=== PATIENT | female | born 1980 | race Caucasian/White ===

== ENCOUNTER 2020-12-08 22:57 | Emergency (ER) | payer OTHER, SELFPAY ==
--- NOTE | ~2020-12-08 | CT_ITS ---
EXAMINATION: CT abdomen pelvis w con EXAM DATE: 12/09/2020 00:19 INDICATION: Abdominal pain. TECHNIQUE: Spiral CT of the abdomen and pelvis was performed following intravenous injection of 100 m L Omnipaque 350. Axial, coronal and sagittal images of the abdomen and pelvis were reviewed. The do se-length product (DLP) for this examination was 1515.16 mGy-cm. The exposure was tailored according to patient size (auto mA exposure control), and iterative reconstruction (ASIR) was used as addition al dose reduction technique. There is no prior study for comparison. FINDINGS: The liver, spleen, adrenal glands and pancreas are unremarkable. There are cholecystectomy clips. Portal and splenic veins are patent. Kidneys enhance symmetrically. There is no hydronephr osis. There is IUD which appears to be centrally located within the endometrium, expected position. The bladder is collapsed at time of imaging limiting evaluation. There is no retroperitoneal or pe lvic lymphadenopathy. The appendix is normal. There is mild sigmoid colonic diverticulosis. There is no adjacent inflammat ory change to suggest diverticulitis. The stomach and small bowel are unremarkable. There is expecte d amount of colonic stool. No free intraperitoneal gas. The heart is normal in size. There are n o pericardial or pleural effusions. The lung bases are unremarkable. The bones are unremarkable. IMPRESSION: No acute intra-abdominal findings. Mild sigmoid diverticulosis. Reviewed, dictated and finalized at location A.
[2020-12-08 23:03] VITALS: BP 150/90; PULSE 98; RESP 18; TEMP 36.7; O2SAT 100
--- NOTE | 2020-12-08 23:09 | ED.GENADULT ---
HPI - General Adult General Chief complaint: Nausea/Vomiting/Diarrhea Stated complaint: abd pain, nausea Time Seen by Provider: 12/08/20 23:09 Source: patient History of Present Illness HPI narrative: Patient is a 40 y/o female complaining of abdominal pain starting 2 days ago. Her pain is mostly located in epigastric area. She describes her pain as aching and burning. She rates her pain as 6-7/10. She took Ibuprofen, Tums and Pepto Bismol, none of which helped. She has some nausea, but no vomiting or diarrhea. Related Data Home Medications Medication Instructions Recorded Confirmed No Home Medications 12/08/20 12/08/20 Allergies Allergy/AdvReac Type Severity Reaction Status Date / Time zolmitriptan Allergy Unknown ANAPHYLAXIS Verified 12/08/20 23:06 NALDECON Allergy Unknown HIVES Uncoded 05/05/19 14:28 Review of Systems Constitutional: Constitutional: Denies chills, Denies fever(s), Denies headache(s) and Denies weakness Eyes: Eyes: Denies blurry vision ENT: Denies headache(s) and Denies neck pain Cardiovascular: Cardiovascular: Denies chest pain and Denies dyspnea Respiratory: Respiratory: Denies cough and Denies dyspnea Gastrointestinal: Gastrointestinal: Reports abdominal pain, Denies diarrhea, Reports nausea and Denies vomiting Genitourinary: Genitourinary: Denies hematuria and Denies dysuria Musculoskeletal: Musculoskeletal: Denies back pain and Denies neck pain Neurologic: Denies headache(s) and Denies weakness PMFSH Social History Social History Alcohol intake: never Exam Const: General: no acute distress and well developed Orientation/consciousness: oriented to person, oriented to place, oriented to time and patient oriented x3 HENMT: Head: normocephalic Ears: external ears normal General nose exam: Normal external nose present Eyes: General: appearance normal, both eyes and all related structures Conjunctivae: conjunctivae normal Neck: Neck: normal visual inspection and full ROM Chest: Chest palpation & inspection: normal inspection of the chest and no tenderness Resp: Effort & Inspection: normal respiratory effort Auscultation: clear to auscultation bilaterally Cardio: Rate: regular rate Rhythm: regular rhythm GI: GI Palp: No abdominal tenderness and Yes Soft to palpation Skin: General skin exam: normal color and turgor normal Neuro: General: oriented to person, oriented to place, oriented to time and patient oriented x3 Cognition (Neuro): normal cognition Extrem: General: normal to inspection, full ROM and no pedal edema Psych: Appearance: grossly normal Mental Status: mental status grossly normal Affect: normal affect Course Vital Signs Vital signs: Vital Signs Temperature 36.7 C 12/08/20 23:03 Pulse Rate 98 12/08/20 23:03 Respiratory Rate 18 12/08/20 23:03 Blood Pressure 150/90 H 12/08/20 23:03 Pulse Oximetry 100 12/08/20 23:03 Temperature 36.7 C 12/08/20 23:03 Pulse Rate 88 12/08/20 23:55 Respiratory Rate 20 12/08/20 23:55 Blood Pressure 125/88 12/08/20 23:55 Pulse Oximetry 98 12/08/20 23:55 Medical Decision Making Vital Signs Vital Signs: Vital Signs Temperature 36.7 C 12/08/20 23:03 Pulse Rate 98 12/08/20 23:03 Respiratory Rate 18 12/08/20 23:03 Blood Pressure 150/90 H 12/08/20 23:03 Pulse Oximetry 100 12/08/20 23:03 Temperature 36.7 C 12/08/20 23:03 Pulse Rate 88 12/08/20 23:55 Respiratory Rate 20 12/08/20 23:55 Blood Pressure 125/88 12/08/20 23:55 Pulse Oximetry 98 12/08/20 23:55 Lab Data Result diagrams: 12/08/20 23:29 12/08/20 23:29 Labs: Lab Results 12/08/20 12/08/20 12/08/20 Range/Units 23:29 23:29 23:57 WBC 8.7 (4.5-10.0) K/mm3 RBC 4.94 (4.2-5.4) M/mm3 Hgb 15.3 H (12.0-15.0) g/dL Hct 45.1 (37.0-47.0) % MCV 91.3 (80-100) fl MCH 31.0 (26-34) pg
[2020-12-08 23:39] LABS: Basophils Absolute Auto 0.1 K/mm3 (0.0-0.1); Basophils Percent Auto 0.8 % (0.2-1.2); Eosinophils Absolute Auto 0.3 K/mm3 (0-0.3); Eosinophils Percent Auto 3.8 % (0-4.4); Hematocrit 45.1 % (37.0-47.0); Hemoglobin 15.3 g/dL (12.0-15.0); Immature Granulocyte Absolute 0.05 K/mm3 (0.00-0.031); Immature Granulocyte Percent A 0.6 % (0-0.5); Lymphocytes Absolute Auto 2.29 K/mm3 (0.9-3.2); Lymphocytes Percent Auto 26.5 % (18.3-44.2); Mean Corpuscular HGB Conc 33.9 g/dl (32-36); Mean Corpuscular Volume 91.3 fl (80-100); Mean Platelet Volume 10.1 fl (7.4-10.4); Monocytes Absolute Auto 0.8 K/mm3 (0.1-0.6); Monocytes Percent Auto 8.8 % (2.6-8.5); Neutrophils Absolute Auto 5.2 K/mm3 (1.3-6.7); Neutrophils Percent Auto 59.5 % (45.5-73.1); Platelet Count Result 276 k/mm3 (150-375); Red Blood Count 4.94 M/mm3 (4.2-5.4); Red Cell Distribution Width 12.2 % (11.5-14.5); White Blood Count 8.7 K/mm3 (4.5-10.0)
[2020-12-08 23:49] LABS: Alanine Aminotransferase 15 U/L (4-35); Albumin Level 4.7 g/dL (3.5-5.1); Alkaline Phosphatase 102 U/L (38-126); Anion Gap 11 mmol/L (8-16); Aspartate Amino Transferase 24 U/L (14-36); Bilirubin,Total 0.6 mg/dL (0.2-1.3); Blood Urea Nitrogen 14 mg/dL (7-17); Calcium 9.7 mg/dL (8.4-10.2); Carbon Dioxide 29 mmol/L (22-30); Chloride 103 mmol/L (98-107); Estimated CRCL calculation 113 ml/min; Estimated Glomerular Filt Rate > 60; Glucose 102 mg/dL (65-105); Lipase 57 U/L (23-300); Potassium 3.4 mmol/L (3.4-5.0); Sodium 143 mmol/L (137-145)
[2020-12-08] MEDS: BELLADONNA ALK/PHENOB ELIX 10 ML, MAG HYDROX/ALUMINUM HYD/SIMETH 30 ML, LIDOCAINE HCL 2... PO (23:52)
[2020-12-08 23:55] VITALS: BP 125/88; PULSE 88; RESP 20; O2SAT 98
[2020-12-09 00:17] LABS: Add Urine Microscopic? YES; Appearance Urine Clear (Clear); Bacteria Urine Trace /hpf; Bilirubin Urine Negative (Negative); Blood Urine Negative (Negative); Color Urine Yellow (Yellow); Glucose Urine UA Negative (Negative); Ketones Urine Negative (Negative); Leukocyte Esterase Ur Negative LEU/UL (Negative); Mucus Urine Rare /lpf; Nitrate Urine Negative (Negative); Protein Urine 1+ mg/dL (Negative); RBC Urine 0-2 /hpf (0-2); Specific Grav Ur 1.017 (1.001-1.035); Squamous Epithelial Cell Urine Many /hpf (Few); Urobilinogen Urine Negative mg/dL (<2.0); WBC Urine 0-3 /hpf
[2020-12-09 01:59] VITALS: BP 127/83; PULSE 79; RESP 18; O2SAT 98
== END 2020-12-09 02:01 | disposition home or self-care (01) ==
PROVIDERS: Emergency Provider Emergency Medicine
DX: R10.13 Epigastric pain (principal)
CPT/HCPCS: 36415; 74177; 80053; 81001; 83690; 85025; 99284; A9270; Q9967

== ENCOUNTER 2021-06-20 13:34 | Emergency (ER) | payer OTHER, SELFPAY ==
[2021-06-20 13:52] VITALS: BP 137/94; PULSE 88; RESP 18; TEMP 37.3; O2SAT 99
--- NOTE | 2021-06-20 14:20 | ED.URI ---
HPI - URI/Sore Throat General Chief Complaint: Upper Respiratory Infection Stated Complaint: Congestion,Cough Time Seen by Provider: 06/20/21 14:25 Source: patient, RN notes reviewed and old records reviewed Mode of arrival: ambulatory Limitations: no limitations History of Present Illness HPI Narrative: 41 year old female who presents to [facility] care with complaints of cough, sinus congestions and drainage for the past 5 days. Patient states that she has noted yellow nasal drainage and also some expectoration of yellow sputum with her cough. She reports that she has been taking some cold and flu tablets for her symptoms without resolution or improvement, does have history of some sinus issues and seasonal allergies. Patient deniesa ny known fevers chills or sweats, denies any dyspnea or any chest pain. Patient has had COVID and flu vaccinations. MD elicited complaint: cough, rhinorrhea and nasal congestion Related Data Allergies Allergy/AdvReac Type Severity Reaction Status Date / Time zolmitriptan Allergy Severe ANAPHYLAXIS Verified 06/20/21 13:56 NALDECON Allergy Mild HIVES Uncoded 06/20/21 13:56 Review of Systems Review of Systems: CONSTITUTIONAL: Denies fever, chills, or sweats. EYES: Denies visual changes, redness, or discharge. ENT: Positive for rhinorrhea, congestion, no sore throat, or otalgia. CARDIOVASCULAR: Denies chest pain, palpitations, or edema. RESPIRATORY: Positive for productive cough denies dyspnea. GASTROINTESTINAL: Denies abdominal pain, nausea, vomiting, or diarrhea. GENITOURINARY: Denies dysuria or hematuria. SKIN: Denies rash or itching. MUSCULOSKELETAL: chronic back pain, joint pain,no body aches NEUROLOGIC: Denies headache, numbness, or weakness. PSYCHIATRIC: Positive for history of anxiety or depression. All systems reviewed & are unremarkable except as noted in HPI and below PMFSH Past Medical History Medical History (Updated 06/23/21 @ 08:32 by Joselin Clemens NP) Anxiety and depression Bulging lumbar disc Elevated serum cholesterol Hx of migraine headaches Hypertension Seasonal allergies UTI (urinary tract infection) Surgical History Surgical History (Updated 06/23/21 @ 08:32 by Joselin Clemens NP) History of dilatation and curettage Hx of cholecystectomy Hx of tonsillectomy Family History Family History (Updated 06/23/21 @ 08:35 by Joselin Clemens NP) Mother Hypertension Diabetes mellitus Grandparent Emphysema lung Cancer Social History Social History (Updated 06/23/21 @ 08:35 by Joselin Clemens NP) Smoking status: Never smoker Alcohol intake: current Alcohol use details: rare social Substance use: never Living arrangements: with family Gender identity (if verbalized by the patient): Female Exam Narrative: GENERAL: Well-appearing, well-nourished, and in no acute distress. HEAD: Normocephalic, atraumatic. EYES: PERRLA and EOMI. ENT: Nares red with swollen turbinates, yellow tinged rhinorrhea no epistaxis. Mucous membranes moist.TM's normal with dull light reflex, throat red with no lesions or exudates, tonsils absent, post nasal drainage noted. NECK: Supple.no lymphadenopathy CHEST: Clear to auscultation. No respiratory distress.productive cough, denies any dyspnea, SAO2 99% on room air HEART: Regular rate and rhythm. No murmur heard. Normal peripheral pulses. ABDOMEN: Soft, nontender, nondistended, normal active bowel sounds. EXTREMITIES: Normal range of motion. No edema. SKIN: Warm, dry, no rash. NEURO: No focal deficits. Alert and oriented x3. Course Vital Signs Vital signs: Vital Signs Temperature 37.3 C 06/20/21 13:52 Pulse Rate 88 06/20/21 13:52 Respiratory Rate 18 06/20/21 13:52 Blood Pressure 137/94 H 06/20/21 13:52 Pulse Oximetry 99 06/20/21 13:52 Temperature 37.3 C 06/20/21 13:52 Pulse Rate 88 06/20/21 13:52 Respiratory Rate 18 06/20/21 13:52 Blood Pressure 137/94 H 06/20/21 13:52 Pulse Oximet
== END 2021-06-20 14:49 | disposition home or self-care (01) ==
PROVIDERS: Emergency Provider Registered Nurse; PCP Registered Nurse
DX: J32.9 Chronic sinusitis, unspecified (principal); I10 Essential (primary) hypertension
CPT/HCPCS: 99213; G0463

== ENCOUNTER 2022-02-04 12:36 | Emergency (ER) | payer OTHER, SELFPAY ==
[2022-02-04 12:52] VITALS: BP 129/77; PULSE 66; RESP 18; TEMP 36.9; O2SAT 98
--- NOTE | 2022-02-04 13:11 | WPDEDEXPGENP ---
HPI - General Ped General Chief complaint: Urogenital-Female Stated complaint: uti complaint History of Present Illness HPI narrative: Patient is a 42-year-old female who presents to the [facility] care via POV for evaluation of urinary symptoms that began yesterday. Additionally, she reports urinary frequency and dysuria. Denies taking meds for symptoms. Additionally, she reports antibiotic use causes yeast infections and is requesting Diflucan. History of UTIs. Today symptoms are similar to previous UTI. Last UTI was 1 month ago. Of note, patient reports treatment failure with Bactrim DS and Macrobid. Related Data Home Medications Medication Instructions Recorded Confirmed hydrochlorothiazide 12.5 mg capsule 12.5 mg DAILY 02/04/22 02/04/22 levonorgestrel 20 mcg/24 hours (7 1 device intrauterine ONCE 02/04/22 02/04/22 yrs) 52 mg intrauterine device (Mirena) Allergies Allergy/AdvReac Type Severity Reaction Status Date / Time zolmitriptan Allergy Severe ANAPHYLAXIS Verified 02/04/22 12:59 NALDECON Allergy Mild HIVES Uncoded 02/04/22 12:59 Pediatric Review of Systems Review of Systems: Denies history of urinary tract infections, pyelonephritis, and renal calculi. Pertinent negatives: fever, chills, sweats, change in appetite, poor p.o. intake, malaise, recent weight loss, myalgias, lymphadenopathy, headache, dizziness, STD exposure, painful intercourse, abdominal pain, constipation, nausea, vomiting, diarrhea, abdominal cramping, hematuria, urinary urgency, back pain, urinary incontinence, vaginal bleeding/discharge, penile drainage, testicular pain, shortness of breath, chest pain, and heart palpitations/murmurs. [facility] Past Medical History Medical History Anxiety and depression Bulging lumbar disc Elevated serum cholesterol Hx of migraine headaches Hypertension Seasonal allergies UTI (urinary tract infection) Surgical History Surgical History History of dilatation and curettage Hx of cholecystectomy Hx of tonsillectomy Family History Family History Mother Hypertension Diabetes mellitus Grandparent Emphysema lung Cancer Social History Social History Smoking status: Never smoker Alcohol intake: current Alcohol use details: rare social Substance use: never Gender identity (if verbalized by the patient): Female Comments I have reviewed and agree with the patient's past medical, surgical, social, and family hx as documented by the RN. There is no relevant family history pertinent to the presenting complaint. Pediatric Exam Narrative: Physical exam: GENERAL: Well-appearing, well-nourished, and in no acute distress. HEAD: Normocephalic, atraumatic. NECK: Supple. No lymphadenopathy or nuchal rigidity. CHEST: Lung sounds are clear to auscultation in bilateral lung mai. No respiratory distress. HEART: Regular rate and rhythm. No murmur, gallop, or rub heard. ABDOMEN: Soft, non-tender, non-distended, normal active bowel sounds in all quadrants. No guarding. No rebound tenderness. No pulsatile or palpable abdominal mass(es). No CVATGU: Bladder non-distended, non-tender EXTREMITIES: Normal range of motion. No edema. SKIN: Warm, dry, no rash. No skin color changes. Excellent turgor. NEURO: No focal deficits. Alert and oriented x3. SPECIAL OBSERVATIONS: Smiling. Laughing. No evidence of discomfort. Course Course Level of Care: Express Care Visit Vital Signs Vital signs: Vital Signs Temperature 98.4 F 02/04/22 12:52 Pulse Rate 66 02/04/22 12:52 Respiratory Rate 18 02/04/22 12:52 Blood Pressure 129/77 02/04/22 12:52 Pulse Oximetry 98 02/04/22 12:52 Oxygen Delivery Room Air 02/04/22 12:52 Temperature 98.4 F
== END 2022-02-04 13:28 | disposition home or self-care (01) ==
PROVIDERS: Emergency Provider Nurse Practitioner Family
DX: N30.90 Cystitis, unspecified without hematuria (principal); I10 Essential (primary) hypertension
CPT/HCPCS: 81003; 87077; 87086; 87186; 99213; G0463

== ENCOUNTER 2022-04-11 10:25 | Emergency (ER) | payer OTHER, SELFPAY ==
[2022-04-11 10:47] VITALS: BP 128/68; PULSE 70; RESP 18; TEMP 36.6; O2SAT 100
--- NOTE | 2022-04-11 10:54 | ED.FEMALEGU ---
HPI - Female Genitourinary General Chief complaint: Urogenital-Female Stated complaint: uti complaint Time Seen by Provider: 04/11/22 10:54 Source: patient and RN notes reviewed Mode of arrival: ambulatory Limitations: no limitations History of Present Illness HPI Narrative: 42-year-old female presented for complaint of urinary frequency, burning, and mild hematuria over the past few days. She endorses more frequent UTIs over the past year. She denies nausea, vomiting, abdominal pain, flank pain, fevers or chills. She is not taking anything [id number] for symptoms Related Data Home Medications Medication Instructions Recorded Confirmed levonorgestrel 20 mcg/24 hours (8 1 device intrauterine ONCE 02/04/22 04/11/22 yrs) 52 mg intrauterine device (Mirena) Allergies Allergy/AdvReac Type Severity Reaction Status Date / Time zolmitriptan Allergy Severe ANAPHYLAXIS Verified 04/11/22 11:03 NALDECON Allergy Mild HIVES Uncoded 04/11/22 11:03 Review of Systems Review of Systems: CONSTITUTIONAL: Denies body aches, fever, chills, or sweats. CARDIOVASCULAR: Denies chest pain, palpitations, or edema. RESPIRATORY: Denies cough or dyspnea. GASTROINTESTINAL: Denies abdominal pain, nausea, vomiting, or diarrhea. GENITOURINARY: Per HPI SKIN: Denies rash, itching, or wounds. MUSCULOSKELETAL: Denies back pain or myalgia. [facility] Past Medical History Medical History Anxiety and depression Bulging lumbar disc Elevated serum cholesterol Hx of migraine headaches Hypertension Seasonal allergies UTI (urinary tract infection) Surgical History Surgical History History of dilatation and curettage Hx of cholecystectomy Hx of tonsillectomy Family History Family History Mother Hypertension Diabetes mellitus Grandparent Emphysema lung Cancer Social History Social History Smoking status: Never smoker Alcohol intake: current Alcohol use details: rare social Substance use: never Gender identity (if verbalized by the patient): Female Comments At time of signature, I have reviewed and agree with nursing past medical, surgical, social and family history unless otherwise noted. Please see nursing chart for further information. There is no relevant family history pertinent to the presenting complaint Exam Narrative: GENERAL: Well-appearing ENT: Mucous membranes pink and moist. CHEST: Clear to auscultation. HEART: Regular rate and rhythm. ABDOMEN: Soft, nontender, nondistended, normal active bowel sounds. No CVA tenderness SKIN: Warm, dry, no rash. NEURO: Alert and oriented x3. Course Course Emergency Course: Patient is aware of diagnosis, understands and agrees to treatment plan. Anticipatory guidance given. Patient agrees to follow-up as directed and is aware of reasons to seek care at the emergency department. Portions of this record may have been created with voice recognition software Level of Care: Express Care Visit Vital Signs Vital signs: Vital Signs Temperature 97.8 F 04/11/22 10:47 Pulse Rate 70 04/11/22 10:47 Respiratory Rate 18 04/11/22 10:47 Blood Pressure 128/68 04/11/22 10:47 Pulse Oximetry 100 04/11/22 10:47 Oxygen Delivery Room Air 04/11/22 10:47 Temperature 97.8 F 04/11/22 10:47 Pulse Rate 70 04/11/22 10:47 Respiratory Rate 18 04/11/22 10:47 Blood Pressure 128/68 04/11/22 10:47 Pulse Oximetry 100 04/11/22 10:47 Oxygen Delivery Room Air 04/11/22 10:47 Reviewed MDM - Female Genitourinary MDM Narrative Medical decision making narrative: Result of urine reviewed with patient. She states Cipro works better than Macrobid and requests fluconazole. Advised supportive measures and signs/symptoms t
== END 2022-04-11 11:07 | disposition home or self-care (01) ==
PROVIDERS: Emergency Provider Nurse Practitioner Family
DX: N39.0 Urinary tract infection, site not specified (principal); I10 Essential (primary) hypertension
CPT/HCPCS: 81003; 87077; 87086; 87181; 87186; 99213; G0463

== ENCOUNTER 2022-04-30 12:17 | Emergency (ER) | payer OTHER, SELFPAY ==
--- NOTE | ~2022-04-30 | XR_ITS ---
[XR ribs RT 2V w CXR 2V ] INDICATION: Right chest wall pain TECHNIQUE: Frontal projection of the upper right ribs, frontal projection of the lower right ribs, ob lique projection of all the right ribs, frontal inspiratory chest x-ray for interpretation. FINDINGS: There are no displaced rib fractures identified. There are no soft tissue abnormality see n. The lungs are clear. IMPRESSION: 1:No acute displaced rib fractures. Reviewed, dictated and finalized at location A.
--- NOTE | ~2022-04-30 | CT_ITS ---
EXAMINATION: CT abdomen pelvis wo con DATE: 04/30/2022 13:41 INDICATION: Right-sided flank pain TECHNIQUE: Computed tomography (CT) of the abdomen and pelvis was performed without intravenous contr ast. The dose-length product was 871.66 mGy-cm. Automated exposure control and iterative reconstructi on technique were employed. COMPARISON: CT dated 12/09/2020. FINDINGS: Lung bases are unremarkable. Heart size normal. No significant pleural or pericardial effus ion. No significant vascular abnormality. No lymphadenopathy. There is an IUD in the uterus. Colonic diverticulosis without evidence for diverticulitis. No abnormal pelvic masses or fluid collections. The liver, spleen, pancreas, adrenal glands and right kidney are unremarkable. There is a 1.4 cm left renal cyst. Gallbladder is surgically absent. Mild lumbar spondylosis. No acute osseous abnormality. IMPRESSION: 1. No acute abdominal abnormality. Reviewed, dictated and finalized at location A.
[2022-04-30 12:25] VITALS: BP 138/67; PULSE 64; RESP 18; TEMP 36.1; O2SAT 98
[2022-04-30 13:11] LABS: Basophils Absolute Auto 0.1 K/mm3 (0.0-0.1); Basophils Percent Auto 0.8 % (0.2-1.2); Eosinophils Absolute Auto 0.3 K/mm3 (0-0.3); Eosinophils Percent Auto 4.2 % (0-4.4); Hematocrit 42.9 % (37.0-47.0); Hemoglobin 14.3 g/dL (12.0-15.0); Immature Granulocyte Absolute 0.03 K/mm3 (0.00-0.031); Immature Granulocyte Percent A 0.5 % (0-0.5); Lymphocytes Absolute Auto 1.69 K/mm3 (0.9-3.2); Lymphocytes Percent Auto 27.2 % (18.3-44.2); Mean Corpuscular HGB Conc 33.3 g/dl (32-36); Mean Corpuscular Hemoglobin 30.7 pg (26-34); Mean Corpuscular Volume 92.1 fl (80-100); Mean Platelet Volume 9.7 fl (7.4-10.4); Monocytes Absolute Auto 0.5 K/mm3 (0.1-0.6); Monocytes Percent Auto 8.1 % (2.6-8.5); Neutrophils Absolute Auto 3.7 K/mm3 (1.3-6.7); Neutrophils Percent Auto 59.2 % (45.5-73.1); Platelet Count Result 267 k/mm3 (150-375); Red Blood Count 4.66 M/mm3 (4.2-5.4); Red Cell Distribution Width 12.5 % (11.5-14.5); White Blood Count 6.2 K/mm3 (4.5-10.0)
[2022-04-30 13:11] LABS: Appearance Urine Clear (Clear); Bilirubin Urine 1+ (Negative); Blood Urine Trace-intact (Negative); Color Urine Yellow (Yellow); Glucose Urine UA Negative (Negative); Ketones Urine Trace mg/dL (Negative); Leukocyte Esterase Ur Negative LEU/UL (Negative); Nitrate Urine Negative (Negative); Protein Urine Trace mg/dL (Negative); Specific Grav Ur >= 1.030 (1.001-1.035); Urobilinogen Urine 0.2 mg/dL (<2.0); pH Urine 5.5 (5.0-9.0)
[2022-04-30 13:19] LABS: Alanine Aminotransferase 47 U/L (6-35); Albumin Level 4.8 g/dL (3.5-5.1); Alkaline Phosphatase 91 U/L (38-126); Anion Gap 11 mmol/L (8-16); Aspartate Amino Transferase 28 U/L (14-36); Bilirubin,Total 0.6 mg/dL (0.2-1.3); Blood Urea Nitrogen 16 mg/dL (7-17); Calcium 9.3 mg/dL (8.4-10.2); Carbon Dioxide 24 mmol/L (22-30); Chloride 106 mmol/L (98-107); Estimated CRCL calculation 120 ml/min; Estimated Glomerular Filt Rate > 60; Glucose 87 mg/dL (65-110); Potassium 3.8 mmol/L (3.4-5.0); Sodium 141 mmol/L (137-145)
[2022-04-30 13:26] LABS: Bacteria Urine Trace /hpf; Mucus Urine Few /lpf; Squamous Epithelial Cell Urine Many /hpf (Few); WBC Urine 0-3 /hpf
[2022-04-30 13:28] LABS: Add Urine Microscopic? YES
--- NOTE | 2022-04-30 14:46 | ED.GENADULT ---
HPI - General Adult General Chief complaint: Unspecified Stated complaint: rib pain, UTI? Time Seen by Provider: 04/30/22 12:28 History of Present Illness HPI narrative: Patient is 42-year-old female who presents ER with right-sided chest wall pain. Worse with twisting and moving lifting arms. Also worse with deep breath. No runny nose or sore throat or productive cough. No discomfort with eating or drinking. No hemoptysis. She does have an IUD. Reports she has been having increased physical activity that may have caused some discomfort. No direct trauma to the chest wall. Patient is also had some burning urination is concerned she may have a UTI. Related Data Home Medications Medication Instructions Recorded Confirmed levonorgestrel 20 mcg/24 hours (8 1 device intrauterine ONCE 02/04/22 04/11/22 yrs) 52 mg intrauterine device (Mirena) Allergies Allergy/AdvReac Type Severity Reaction Status Date / Time zolmitriptan Allergy Severe ANAPHYLAXIS Verified 04/30/22 12:37 NALDECON Allergy Mild HIVES Uncoded 04/30/22 12:37 Review of Systems Review of Systems: All systems reviewed & are unremarkable except as noted in HPI and below Constitutional: Constitutional: Denies chills, Denies fatigue and Denies fever(s) ENT: Denies nasal congestion and Denies sore throat Cardiovascular: Cardiovascular: Reports chest pain, Denies rapid heart rate and Denies palpitations Respiratory: Respiratory: Denies cough and Denies dyspnea Gastrointestinal: Gastrointestinal: Denies abdominal pain, Denies diarrhea, Denies nausea and Denies vomiting Genitourinary: Genitourinary: Denies hematuria, Reports dysuria and Reports flank pain PMFSH Past Medical History Medical History Anxiety and depression Bulging lumbar disc Elevated serum cholesterol Hx of migraine headaches Hypertension Seasonal allergies UTI (urinary tract infection) Surgical History Surgical History History of dilatation and curettage Hx of cholecystectomy Hx of tonsillectomy Family History Family History Mother Hypertension Diabetes mellitus Grandparent Emphysema lung Cancer Social History Social History Smoking status: Never smoker Alcohol intake: current Alcohol use details: rare social Substance use: never Gender identity (if verbalized by the patient): Female Exam Narrative: GENERAL: Well-appearing, well-nourished, and in no acute distress. HEAD: Normocephalic, atraumatic. EYES: PERRL and EOMI. CHEST: Clear to auscultation. No respiratory distress. Mild tenderness with palpation over the right lateral chest wall. HEART: Regular rate and rhythm. Normal peripheral pulses. ABDOMEN: Soft, nontender, nondistended. EXTREMITIES: Normal range of motion. No edema. SKIN: Warm, dry, no rash. NEURO: Alert and oriented x3. PSYCH: Normal mood and affect. Course Course Emergency Course: Patient resting comfortably. Informed of results. Discharge home. Vital Signs Vital signs: Vital Signs Temperature 97 F L 04/30/22 12:25 Pulse Rate 64 04/30/22 12:25 Respiratory Rate 18 04/30/22 12:25 Blood Pressure 138/67 04/30/22 12:25 Pulse Oximetry 98 04/30/22 12:25 Temperature 97 F L 04/30/22 12:25 Pulse Rate 64 04/30/22 12:25 Respiratory Rate 18 04/30/22 12:25 Blood Pressure 138/67 04/30/22 12:25 Pulse Oximetry 98 04/30/22 12:25 Medical Decision Making Vital Signs Vital Signs: Vital Signs Temperature 97 F L 04/30/22 12:25 Pulse Rate 64 04/30/22 12:25 Respiratory Rate 18 04/30/22 12:25 Blood Pressure 138/67 04/30/22 12:25 Pulse Oximetry 98 04/30/22 12:25 Temperature 97 F L 04/30/22 12:25 Pulse Rate 64 04/30/22 12:25 Respiratory Rate 18
== END 2022-04-30 15:16 | disposition home or self-care (01) ==
PROVIDERS: Emergency Provider Emergency Medicine
DX: R07.89 Other chest pain (principal); I10 Essential (primary) hypertension; Z87.440 Personal history of urinary (tract) infections
CPT/HCPCS: 36415; 71046; 71100; 74176; 80053; 81001; 81025; 85025; 99284

== ENCOUNTER 2022-07-25 15:12 | Emergency (ER) | payer OTHER, SELFPAY ==
[2022-07-25 15:22] VITALS: BP 133/89; PULSE 87; RESP 18; TEMP 36.2; O2SAT 99
--- NOTE | 2022-07-25 15:55 | ED.URI ---
HPI - URI/Sore Throat General Chief Complaint: Upper Respiratory Infection Stated Complaint: Sore Throat Time Seen by Provider: 07/25/22 15:35 Source: patient Mode of arrival: ambulatory Limitations: no limitations History of Present Illness HPI Narrative: Patient presents today complaining of 2 day history of sore throat, congestion with postnasal drip, body aches, chills, sweats mild cough. Denies fever or shortness of breath. She is currently pain-free. She has been taking Dariela-Overton Plus with mild relief. Related Data Home Medications Medication Instructions Recorded Confirmed levonorgestrel 20 mcg/24 hours (8 1 device intrauterine ONCE 02/04/22 07/25/22 yrs) 52 mg intrauterine device (Mirena) hydrochlorothiazide 12.5 mg capsule 12.5 mg PO DAILY 07/25/22 07/25/22 Allergies Allergy/AdvReac Type Severity Reaction Status Date / Time zolmitriptan AdvReac Severe ANAPHYLAXIS Verified 07/25/22 15:25 NALDECON AdvReac Mild HIVES Uncoded 07/25/22 15:25 Review of Systems Review of Systems: CONSTITUTIONAL: Denies fever.+ body aches, chills, sweats EYES: Denies visual changes, redness, or discharge. ENT: Denies rhinorrhea, or otalgia.+ sore throat, congestion, postnasal drip CARDIOVASCULAR: Denies chest pain, palpitations, or edema. RESPIRATORY: Denies dyspnea.+ mild cough GASTROINTESTINAL: Denies abdominal pain, nausea, vomiting, or diarrhea. GENITOURINARY: Denies dysuria or hematuria. SKIN: Denies rash, itching, or wounds. MUSCULOSKELETAL: Denies back pain, joint pain, or myalgia. NEUROLOGIC: Denies headache, numbness, tingling, or weakness. PSYCH: Denies depression or anxiety. [facility] Past Medical History Medical History Anxiety and depression Bulging lumbar disc Elevated serum cholesterol Hx of migraine headaches Hypertension Seasonal allergies UTI (urinary tract infection) Surgical History Surgical History History of dilatation and curettage Hx of cholecystectomy Hx of tonsillectomy Family History Family History Mother Hypertension Diabetes mellitus Grandparent Emphysema lung Cancer Social History Social History Smoking status: Never smoker Alcohol intake: current Alcohol use details: rare social Substance use: never Living arrangements: with family Gender identity (if verbalized by the patient): Female Comments At time of signature, I have reviewed and agree with nursing past medical, surgical, social and family history unless otherwise noted. Please see nursing chart for further information. There is no relevant family history pertinent to the presenting complaint Exam Narrative: GENERAL: Mildly ill-appearing, well-nourished, and in no acute distress. HEAD: Normocephalic, atraumatic. EYES: EOMI. No redness or drainage. Conjunctivae normal. ENT: Mucous membranes pink and moist. Nares congested. No rhinorrhea. TMs normal bilaterally. Throat mildly erythematous without edema or exudate. Uvula midline. NECK: Normal AROM. Supple. No lymphadenopathy. CHEST: No respiratory distress. Clear to auscultation. HEART: Regular rate and rhythm. No murmur appreciated. Normal peripheral pulses. EXTREMITIES: Normal range of motion. No edema. SKIN: Warm, dry, no rash. Capillary refill normal. Normal skin turgor. NEURO: No focal deficits. Alert and oriented x3. Gait steady. PSYCH: Normal affect. No signs of depression or anxiety. Course Course Level of Care: Express Care Visit Vital Signs Vital signs: Vital Signs Temperature 97.2 F L 07/25/22 15:22 Pulse Rate 87 07/25/22 15:22 Respiratory Rate 18 07/25/22 15:22 Blood Pressure 133/89 07/25/22 15:22 Pulse Oximetry 99 07/25/22 15:22 Oxygen Delivery Room Air 07/25/22
== END 2022-07-25 16:05 | disposition home or self-care (01) ==
PROVIDERS: Emergency Provider Nurse Practitioner
DX: J06.9 Acute upper respiratory infection, unspecified (principal); I10 Essential (primary) hypertension
CPT/HCPCS: 87804; 99213; G0463

== ENCOUNTER 2022-08-14 08:58 | Emergency (ER) | payer OTHER, SELFPAY ==
--- NOTE | ~2022-08-14 | XR_ITS ---
XR finger 1st RT min 2V DATE: 08/14/2022 09:53 INDICATION: Pain and swelling of first digit. Rule out foreign body. TECHNIQUE: 3 views COMPARISON: None FINDINGS: There is mild osteoarthritis at the first metacarpophalangeal joint. No fracture, dislocation, periosteal reaction or bone destruction. No radiopaque soft tissue foreign body. 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 D [employer] TECH[employer]ICIAN
[2022-08-14 09:01] VITALS: BP 154/94; PULSE 80; RESP 20; TEMP 36.9; O2SAT 99
--- NOTE | 2022-08-14 11:18 | ED.UPPEXIN ---
HPI - Extremity Injury (Upper) General Chief Complaint: Extremity Injury, Upper Stated Complaint: right thumb injury Time Seen by Provider: 08/14/22 11:03 Source: patient Mode of arrival: ambulatory Limitations: no limitations History of Present Illness HPI narrative: Presents emergency department for redness and swelling of the right thumb ongoing since yesterday. Reports she had been cleaning out some old bushes and felt like one poked her finger. She had mild bleeding at the time. She was wearing gloves. Reports she has had worsening redness and swelling since then. Denies fever or drainage. Related Data Home Medications Medication Instructions Recorded Confirmed levonorgestrel 21 mcg/24 hours (8 1 device intrauterine ONCE 02/04/22 07/25/22 yrs) 52 mg intrauterine device (Mirena) hydrochlorothiazide 12.5 mg capsule 12.5 mg PO DAILY 07/25/22 07/25/22 Allergies Allergy/AdvReac Type Severity Reaction Status Date / Time zolmitriptan AdvReac Severe ANAPHYLAXIS Verified 08/14/22 11:11 NALDECON AdvReac Mild HIVES Uncoded 08/14/22 11:11 Review of Systems Review of Systems: CONSTITUTIONAL: Denies fever SKIN: Reports redness and swelling All systems reviewed & are unremarkable except as noted in HPI and below PMFSH Past Medical History Medical History Anxiety and depression Bulging lumbar disc Elevated serum cholesterol Hx of migraine headaches Hypertension Seasonal allergies UTI (urinary tract infection) Surgical History Surgical History History of dilatation and curettage Hx of cholecystectomy Hx of tonsillectomy Family History Family History Mother Hypertension Diabetes mellitus Grandparent Emphysema lung Cancer Social History Social History Smoking status: Never smoker Alcohol intake: current Alcohol use details: rare social Substance use: never Living arrangements: with family Gender identity (if verbalized by the patient): Female Exam Narrative: GENERAL: Well-appearing, well-nourished, and in no acute distress. HEAD: Normocephalic, atraumatic. EYES: EOMI. EXTREMITIES: Normal range of motion. Mild redness and swelling noted to the right first finger distal phalanx palmar surface. No foreign body noted on exam. No lymphangitic streaking SKIN: Warm, dry, no rash. NEURO: No focal deficits. Alert and oriented x3. PSYCH: Normal mood and affect Course Vital Signs Vital signs: Vital Signs Temperature 98.5 F 08/14/22 09:01 Pulse Rate 80 08/14/22 09:01 Respiratory Rate 20 08/14/22 09:01 Blood Pressure 154/94 H 08/14/22 09:01 Pulse Oximetry 99 08/14/22 09:01 Oxygen Delivery Room Air 08/14/22 09:01 Temperature 98.5 F 08/14/22 09:01 Pulse Rate 80 08/14/22 09:01 Respiratory Rate 20 08/14/22 09:01 Blood Pressure 154/94 H 08/14/22 09:01 Pulse Oximetry 99 08/14/22 09:01 Oxygen Delivery Room Air 08/14/22 09:01 MDM - Extremity Injury (Upper) MDM Narrative Medical decision making narrative: Presents emergency department for redness and swelling of the right thumb ongoing since yesterday. Reports she had been cleaning out some old bushes and felt like one poked her finger. No obvious foreign bodies on exam. X-ray of the right first finger without acute abnormalities or evidence of foreign body. Patient will be started on an antibiotic for mild cellulitis. She is to follow-up with her primary provider. 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
== END 2022-08-14 11:31 | disposition home or self-care (01) ==
PROVIDERS: Emergency Provider Physician Assistant
DX: L03.011 Cellulitis of right finger (principal); I10 Essential (primary) hypertension; Z87.440 Personal history of urinary (tract) infections; Z97.5 Presence of (intrauterine) contraceptive device; M18.9 Osteoarthritis of first carpometacarpal joint, unspecified
CPT/HCPCS: 73140; 99283

== ENCOUNTER 2023-02-06 12:29 | Outpatient (CLI) | payer OTHER, SELFPAY ==
--- NOTE | ~2023-02-06 | MMUS_ITS ---
EXAMINATION: MM diagnostic henrry BI w inez, US breast RT limited HISTORY: Palpable lump of the upper inner right breast TECHNIQUE: Craniocaudal, mediolateral, and mediolateral oblique 3-D tomosynthesis images of the breas ts were performed and synthetic 2-D images were generated. CAD analysis was submitted and interpreted . High resolution limited right breast ultrasound was performed. COMPARISON: 06/04/2014 FINDINGS: MAMMOGRAPHIC FINDINGS: No mammographic correlate is identified for the reported palpable abnormality of concern. An asymmetr y of the breast on the craniocaudal view appears to represent fibroglandular tissue in the inferior b reast, distant from the reported palpable abnormality of the upper breast. No suspicious mass, calcif ication, or architectural distortion are seen. ULTRASOUND: There is no evidence of focal abnormal solid or cystic mass in the vicinity of the reported palpable abnormality of concern. IMPRESSION: 1. No specific mammographic or sonographic correlate is identified for the reported palpable abnormal ity of concern. Further evaluation at this time should be based on clinical assessment. Continued fol low-up physical examination is recommended. 2. Recommend routine screening mammography in one year. BI-RADS Category 2: Benign finding(s). Reviewed, dictated and finalized at location A. IMPRESSION: 1. No specific mammographic or sonographic correlate is identified for the repo rted palpable abnormality of concern. Further evaluation at this time should be based on clinical assessment. Continued follow-up physical examination is cierra mmended. 2. Recommend routine screening mammography in one year. BI-RADS Category 2: Benign finding(s).
== END 2023-02-06 12:30 | disposition home or self-care (01) ==
PROVIDERS: Visit Provider Obstetrics & Gynecology
DX: N63.20 Unspecified lump in the left breast, unspecified quadrant (principal)
CPT/HCPCS: 76642; 77062; 77066; G0279

== ENCOUNTER 2023-07-22 09:34 | Emergency (ER) | payer OTHER, SELFPAY ==
--- NOTE | 2023-07-22 09:55 | ED.URI ---
HPI - URI/Sore Throat General Chief Complaint: Upper Respiratory Infection Stated Complaint: congestion,cough,fever Time Seen by Provider: 07/22/23 10:00 Source: patient, RN notes reviewed and old records reviewed Mode of arrival: ambulatory Limitations: no limitations History of Present Illness HPI Narrative: 43-year-old female presents with a 3 day history of a sore throat, productive cough. Patient states that she has tied DayQuil and NyQuil, Gwendolyn Massey. Declined COVID testing here, had a COVID test at home which was negative yesterday and day before. Denies fevers Onset (ago): day(s) (3) Related Data Home Medications Medication Instructions Recorded Confirmed levonorgestrel 21 mcg/24 hours (8 1 device intrauterine ONCE 02/04/22 07/22/23 yrs) 52 mg intrauterine device (Mirena) hydrochlorothiazide 12.5 mg capsule 12.5 mg PO DAILY 07/25/22 07/22/23 Allergies Allergy/AdvReac Type Severity Reaction Status Date / Time zolmitriptan AdvReac Severe ANAPHYLAXIS Verified 07/22/23 09:58 NALDECON AdvReac Mild HIVES Uncoded 07/22/23 09:58 Review of Systems Review of Systems: All systems reviewed & are unremarkable except as noted in HPI and below Constitutional: Constitutional: Reports no additional constitutional complaints Eyes: Eyes: Reports no additional eye complaints ENT: Reports as per HPI and Reports sore throat Cardiovascular: Cardiovascular: Reports no additional cardiovascular complaints, Denies chest pain and Denies dyspnea Respiratory: Respiratory: Reports as per HPI, Denies chest congestion, Reports cough and Denies dyspnea Gastrointestinal: Gastrointestinal: Reports no additional gastrointestinal complaints, Denies abdominal pain, Denies nausea and Denies vomiting Musculoskeletal: Musculoskeletal: Reports no additional musculoskeletal complaints Integumentary/Breasts: Skin/Breast: Reports system reviewed and no additional complaints, except as docu Neurologic: Reports system reviewed and no additional complaints, except as documented Psychiatric: Psychiatric: Reports no additional psychiatric complaints Allergic/Immunologic: Allergic/Immunologic: Reports no additional allergic/immunologic complaints PMFSH Past Medical History Medical History Anxiety and depression Bulging lumbar disc Elevated serum cholesterol Hx of migraine headaches Hypertension Seasonal allergies UTI (urinary tract infection) Surgical History Surgical History History of dilatation and curettage Hx of cholecystectomy Hx of tonsillectomy Family History Family History Mother Hypertension Diabetes mellitus Grandparent Emphysema lung Cancer Social History Social History Smoking status: Never smoker Alcohol intake: current Alcohol use details: rare social Substance use: never Living arrangements: with family Gender identity (if verbalized by the patient): Female Comments At the time of my signature, I reviewed and agree with the nursing past medical, surgical, social, and family history. There is no relevant family history pertinent to the patient complaint. Exam Const: General: cooperative, healthy appearing, comfortable, no acute distress, well developed, alert and well nourished Nutritional Appearance: well nourished and obese Orientation/consciousness: patient oriented x3 Limitations: no limitations HENMT: Head: normal to inspection Ears: hearing grossly normal bilaterally, external ears normal, TM's normal bilaterally, EAC's normal, mastoids normal and no periauricular adenopathy Face/Nose/Sinus: Normal external nose present, Normal nares present, Normal nasal mucous membranes and turbinates present, normal facial exam and face symmetric Face and sinus: normal facial e
[2023-07-22 09:57] VITALS: BP 137/79; PULSE 89; RESP 18; TEMP 36.5; O2SAT 98
[2023-07-22 09:58] VITALS: BP 137/79; PULSE 89; RESP 18; TEMP 36.5; O2SAT 98
== END 2023-07-22 10:40 | disposition home or self-care (01) ==
PROVIDERS: Emergency Provider Nurse Practitioner
DX: J40 Bronchitis, not specified as acute or chronic (principal); I10 Essential (primary) hypertension
CPT/HCPCS: 87081; 87804; 87880; 99213; G0463

== ENCOUNTER 2024-02-20 10:46 | Outpatient (CLI) | payer OTHER, SELFPAY ==
--- NOTE | ~2024-02-20 | XR_ITS ---
XR wrist RT min 3V Ordering provider: Bang Curry MD History: . Lateral Epicondylitis, NUMBNESS AND TINGLING IN HANDS . Comparison: None. FINDINGS: BONES: No acute fracture or dislocation. No definite scaphoid fracture. JOINT SPACES: Normal. SOFT TISSUES: Normal. IMPRESSION: No acute osseous abnormality right wrist. Reviewed, dictated and finalized at location A.
--- NOTE | ~2024-02-20 | XR_ITS ---
XR wrist LT min 3V Ordering provider: Bang Curry MD History: . Lateral Epicondylitis, NUMBNESS AND TINGLING IN HANDS . Comparison: None. FINDINGS: BONES: No acute fracture or dislocation. No definite scaphoid fracture. JOINT SPACES: Well maintained. SOFT TISSUES: Normal. IMPRESSION: No acute osseous abnormality left wrist. Reviewed, dictated and finalized at location A.
== END 2024-02-20 10:47 | disposition home or self-care (01) ==
LOC: ANHIMG 10:49
PROVIDERS: Visit Provider Plastic Surgery
DX: M77.11 Lateral epicondylitis, right elbow (principal); M77.12 Lateral epicondylitis, left elbow
CPT/HCPCS: 73110

== ENCOUNTER 2024-03-12 15:07 | Emergency (ER) | payer OTHER, SELFPAY ==
--- NOTE | 2024-03-12 15:11 | ED.SKABFB ---
HPI - Skin/Abscess/Foreign Bdy General Chief complaint: Skin/Abscess/Foreign Body Stated complaint: possible Poison Time Seen by Provider: 03/12/24 15:18 Source: patient and RN notes reviewed Mode of arrival: ambulatory Limitations: no limitations History of Present Illness HPI narrative: 44 year old female presents with concern for ongoing rash on her bilateral upper arms. Reports she was treated by a virtual doctor with 10 days of tapered steroid in the rash started to get better but the steroid is gone and the rash has returned and seems worse. She reports it is tight, red, burning, itching. Reports she was prescribed mupirocin ointment as well as the steroid because there were some blistery areas on the rash that the provider was concerned could be Staph. Reports she used that for couple of days it is seem to make the rash worse so she stopped. She denies any swollen lips, swollen tongue, trouble breathing. She reports she has used several [id number] poison magdy treatments without relief MD complaint: rash Related Data Home Medications Medication Instructions Recorded Confirmed levonorgestrel 21 mcg/24 hr (up to 1 device intrauterine ONCE 02/04/22 03/12/24 8 years) 52 mg intrauterine device (Mirena) mupirocin 2 % topical ointment 1 applic topical TID 03/12/24 03/12/24 Allergies Allergy/AdvReac Type Severity Reaction Status Date / Time zolmitriptan Allergy Severe ANAPHYLAXIS Verified 03/12/24 15:13 NALDECON AdvReac Mild HIVES Uncoded 03/12/24 15:13 Review of Systems Review of Systems: CONSTITUTIONAL: Denies malaise, chills, sweats, or fever. EYES: Denies redness, or discharge. ENT: Denies rhinorrhea, congestion, swollen lips, swollen tongue CARDIOVASCULAR: Denies chest pain, palpitations, or edema. RESPIRATORY: Denies cough or dyspnea. GASTROINTESTINAL: Denies abdominal pain, nausea, vomiting SKIN: Reports ongoing itchy rash on her bilateral upper extremities MUSCULOSKELETAL: Denies joint pain or myalgia. NEUROLOGIC: Denies headache. All systems reviewed & are unremarkable except as noted in HPI and below PMFSH Past Medical History Medical History Anxiety and depression Bulging lumbar disc Elevated serum cholesterol Hx of migraine headaches Hypertension Seasonal allergies UTI (urinary tract infection) Surgical History Surgical History History of dilatation and curettage Hx of cholecystectomy Hx of tonsillectomy Family History Family History Mother Hypertension Diabetes mellitus Grandparent Emphysema lung Cancer Social History Social History Smoking status: Never smoker Alcohol intake: current Alcohol use details: rare social Substance use: never Living arrangements: with family Gender identity (if verbalized by the patient): Female Comments At time of signature, agree with nursing past medical, surgical, social and family history. There is no relevant family history pertinent to the presenting complaint Exam Narrative: GENERAL: Well-appearing, well-nourished, and in no acute distress. HEAD: Normocephalic, atraumatic. EYES: PERRLA, conjunctivae clear, and EOMI. ENT: Mucous membranes moist. Oropharynx without edema, erythema or lesions. NECK: Supple. No lymphadenopathy CHEST: Clear to auscultation. No respiratory distress. HEART: Regular rate and rhythm. SKIN: Warm, dry. Large Raised Patches of erythema and plaque with some linear patterns noted to bilateral upper arms consistent with plant contact dermatitis, no evidence cellulitis NEURO: Alert and oriented x3. PSYCH: Normal mood and affect Course Course Emergency Course: Patient is aware of diagnosis, understands and agrees to treatment plan. Anticipatory guidance given. Patient agre
[2024-03-12 15:15] VITALS: BP 149/90; PULSE 84; RESP 16; TEMP 36.2; O2SAT 100
[2024-03-12] MEDS: methylPREDNISolone SOD SUCC 125 MG VIAL IM (15:33)
== END 2024-03-12 15:36 | disposition home or self-care (01) ==
PROVIDERS: Emergency Provider Nurse Practitioner
DX: L25.9 Unspecified contact dermatitis, unspecified cause (principal); I10 Essential (primary) hypertension; E78.00 Pure hypercholesterolemia, unspecified
CPT/HCPCS: 96372; 99213; G0463; J2919

== ENCOUNTER 2024-05-17 12:09 | Emergency (ER) | payer OTHER, SELFPAY ==
--- NOTE | ~2024-05-17 | CT_ITS ---
EXAMINATION: CT abdomen pelvis w con DATE: 05/17/2024 14:48 INDICATION: Lower abdominal pain and tenderness TECHNIQUE: Computed tomography (CT) of the abdomen and pelvis was performed with 100 mL Omnipaque-350 intravenous contrast. Automated exposure control and iterative reconstruction technique were employe d. The dose-length product was 1188.97 mGy-cm. COMPARISON: 04/30/2022 FINDINGS: Lung bases are clear. Heart size is normal. No pericardial or pleural effusion. Cholecystectomy clips the gallbladder fossa. Liver, spleen, pancreas, bilateral adrenal glands and right kidney are normal . 2 cm left renal cyst. There is minimal stranding surrounding a diverticulum at the proximal sigmoid colon consistent with diverticulitis. No abscess or free intraperitoneal gas or fluid. Small bowel a nd appendix are normal. Bladder and left ovary are normal. 2 cm right ovarian follicle. 9 mm nabothia n cyst at the cervix. T-shaped IUD in expected position within the anteverted uterus. No free intrape ritoneal gas or fluid. No pathologically enlarged abdominal or pelvic lymphadenopathy. Mild to thorac olumbar spondylosis. IMPRESSION: 1. Radiographically uncomplicated sigmoid diverticulitis. 2. IUD in expected position. Reviewed, dictated and finalized at location B. DEVELOPER
[2024-05-17 12:16] VITALS: BP 159/113; PULSE 96; RESP 16; TEMP 36.4; O2SAT 100
--- NOTE | 2024-05-17 13:28 | ED.ABDPAIN ---
HPI - Abdominal Pain General Chief Complaint: Abdominal Pain Stated Complaint: lower abdomen and lower back pain Time Seen by Provider: 05/17/24 12:15 History of Present Illness HPI narrative: 44-year-old female presenting with abdominal pain. States that for the last few days she has had lower abdominal pain that has been progressively worsening. States she has a history of sciatica and she saw her PCP yesterday who started her on Flexeril which has not helped. States that she does have some back pain but it feels like her normal back pain. She is really more concerned about the lower abdominal pain. States that walking, bearing down, sneezing makes the pain worse. No dysuria or hematuria. No constipation, diarrhea, hematochezia, melena. Related Data Home Medications Medication Instructions Recorded Confirmed levonorgestrel 21 mcg/24 hr (up to 1 device intrauterine ONCE 02/04/22 03/12/24 8 years) 52 mg intrauterine device (Mirena) mupirocin 2 % topical ointment 1 applic topical TID 03/12/24 03/12/24 Allergies Allergy/AdvReac Type Severity Reaction Status Date / Time zolmitriptan Allergy Severe ANAPHYLAXIS Verified 05/17/24 12:21 NALDECON AdvReac Mild HIVES Uncoded 05/17/24 12:21 Review of Systems Review of Systems: All systems reviewed & are unremarkable except as noted in HPI and below PMFSH Past Medical History Medical History Anxiety and depression Bulging lumbar disc Elevated serum cholesterol Hx of migraine headaches Hypertension Seasonal allergies UTI (urinary tract infection) Surgical History Surgical History History of dilatation and curettage Hx of cholecystectomy Hx of tonsillectomy Family History Family History Mother Hypertension Diabetes mellitus Grandparent Emphysema lung Cancer Social History Social History Smoking status: Never smoker Alcohol intake: current Alcohol use details: rare social Substance use: never Living arrangements: with family Gender identity (if verbalized by the patient): Female Exam Narrative: GENERAL: Nontoxic, no acute distress, pleasant cooperative HEAD: Normocephalic, atraumatic. EYES: PERRLA and EOMI. ENT: Nares clear, no rhinorrhea or epistaxis. Mucous membranes moist. NECK: Supple. CHEST: No respiratory distress. HEART: Regular rate and rhythm ABDOMEN: Soft, + tender in all lower quadrants without guarding or rebound EXTREMITIES: Normal range of motion SKIN: Warm, dry, no rash. NEURO: No focal deficits. Alert and oriented x3. PSYCH: Normal mood and affect. Course Vital Signs Vital signs: Vital Signs Temperature 97.5 F L 05/17/24 12:16 Pulse Rate 96 05/17/24 12:16 Respiratory Rate 16 05/17/24 12:16 Blood Pressure 159/113 H 05/17/24 12:16 Pulse Oximetry 100 05/17/24 12:16 Oxygen Delivery Room Air 05/17/24 12:16 Temperature 97.5 F L 05/17/24 12:16 Pulse Rate 91 05/17/24 13:40 Respiratory Rate 16 05/17/24 13:40 Blood Pressure 155/107 H 05/17/24 13:40 Pulse Oximetry 96 05/17/24 13:40 Oxygen Delivery Room Air 05/17/24 12:16 MDM - Abdominal Pain MDM Narrative Medical decision making narrative: 44-year-old female presenting with several days of lower abdominal pain. Vitals are stable. Exam remarkable for the above. Patient has been taking Tylenol with minimal relief. Will start with some Toradol, labs, CT abdomen pelvis. Blood work without significant abnormality. CT abdomen pelvis shows uncomplicated diverticulitis. On re-evaluation of the patient is resting comfortably. She is safe for outpatient management. Will send in for Augmentin. Discussed appropriate supportive care and return precautions. Recommend PCP follow-up. Patient is agreeable this plan. Discharged in stable condition. Differential Diagnosis Differential diagnosis: Likely abdominal pain, acute appendicitis, constipation, diverticulitis, gastroenteritis and pancreatitis Medical Records Attestation: I reviewed the patient's medical records. Lab Data Attestation: I reviewed the patient's lab results. 05/17/24 13:39 05/17/24 13:39 Labs: Lab Results 05/17/24 Range/Units 13:39 WBC 8.3 (4.5-10.0) K/mm3 RBC 4.76 (4.2-5.4) M/mm3 Hgb 14.6 (12.0-15.0) g/dL Hct 42.6 (37.0-47.0) % MCV 89.5 (80-100) fl MCH 30.7 (26-34) pg MCHC 34.3 (32-36) g/dl RDW 12.2 (11.5-14.5) % Plt Count 257 (150-375) k/mm3 MPV 9.5 (7.4-10.4) fl Immature Gran % (Auto) 0.4 (0-0.5) % Neut % (Auto) 67.9 (45.5-73.1) % Lymph % (Auto) 19.7 (18.3-44.2) % [place] % (Auto) 7.7 (2.6-8.5) % Eos % (Auto) 3.7 (0-4.4) % Baso % (Auto) 0.6 (0.2-1.2) % Lymph # (Auto) 1.63 (0.9-3.2) K/mm3 [place] # (Auto) 0.6 (0.1-0.6) K/mm3 Eos # (Auto) 0.3 (0-0.3) K/mm3 Baso # (Auto) 0.1 (0.0-0.1) K/mm3 Abs Immat Gran (auto) 0.03 (0.00-0.031) K/mm3 Absolute Neuts (auto) 5.6 (1.3-6.7) K/mm3 Absolute Nucleated RBC 0.000 (0.0-0.012) K/mm3 Nucleated RBC % 0.0 (0.0-0.2) % Sodium 139 (137-145) mmol/L Potassium 3.3 L (3.4-5.0) mmol/L Chloride 105 (98-107) mmol/L Carbon Dioxide 26 (22-30) mmol/L Anion Gap 8 (4-12) mmol/L BUN 12 (7-17) mg/dL Creatinine 0.70 (0.7-1.0) mg/dL Estim Creat Clear Calc 119 ml/min Estimated GFR > 60 (59 - ) Glucose 85 (65-110) mg/dL Calcium 9.2 (8.4-10.2) mg/dL Total Bilirubin 0.7 (0.2-1.3) mg/dL AST 30 (14-36) U/L ALT 37 H (6-35) U/L Alkaline Phosphatase 103 (38-126) U/L Total Protein 8.0 (6.3-8.2) g/dL Albumin 4.6 (3.5-5.1) g/dL Lipase 38 (23-300) U/L Urine Color Yellow (Yellow) Urine Appearance Cloudy H (Clear) Urine pH 5.5 (5.0-9.0) Ur Specific [place] 1.025 (1.001-1.035) Urine Protein Trace (Negative) mg/dL Urine Glucose (UA) Negative (Negative) mg/dL Urine Ketones Trace H (Negative) mg/dL Ur Blood (Man) Negative (Negative) Urine Nitrate Negative (Negative) Urine Bilirubin Negative (Negative) Urine Urobilinogen 0.2 (<2.0) mg/dL Add Ur Microanalysis Reviewed Leukocyte Esterase Rfl Negative (Negative) OBEY/UL Urine RBC 11-20 H (0-2) /hpf Urine WBC 0-5 (0-3) /hpf Ur Squamous Epith Cells Few (Few) /hpf Urine Bacteria 1+ H /hpf Urine Casts 0-2 Imaging Data Radiologist's impression: ITS Impressions Abdomen/Pelvis CT 05/17/24 14:53 IMPRESSION: 1. Radiographically uncomplicated sigmoid diverticulitis. 2. IUD in expected position. Critical Care Time Critical Care Time Critical Care Time: No Discharge Plan Discharge Clinical Impression: Diverticulitis Patient Disposition: Home, Self-Care Condition: Stable Instructions: Antibiotic Form, Diverticulitis (DC), Diverticulitis Diet (ED) Additional Instructions: Your workup today shows diverticulitis. We have started you on antibiotics, please take these as prescribed. Follow-up closely with your PCP. If your symptoms worsen or other concerning symptoms arise, please return to the ER. Prescriptions: New amoxicillin-pot clavulanate 875-125 mg tablet 1 tablet PO Q12H Qty: 14 0RF oxycodone 5 mg tablet 5 mg PO Q8H PRN (Reason: pain) Qty: 5 0RF No Action Mirena 20 mcg/24 hours (7 yrs) 52 mg Intrauterine Device 1 device INTRAUTERINE ONCE Rx Instructions: as a single dose mupirocin 2 % ointment 1 applic TOPICAL TID prednisone 10 mg tablet 10 mg PO DAILY Qty: 42 0RF Rx Instructions: 6 tabs days 1-2, 5 tabs days 3-4, 4 tabs days 5-6, 3 tabs days 7-8, 2 tabs days 9-10, 1 tab days 11-12 triamcinolone acetonide 0.1 % cream 1 applic TOPICAL BID 7 Days Qty: 80 0RF Follow-up/Referrals: UNKNOWN,DOCTOR [Primary Care Provider] -
[2024-05-17] MEDS: KETOROLAC 30 MG/ML VIAL (*BKC) IV PUSH (13:38)
[2024-05-17 13:40] VITALS: BP 155/107; PULSE 91; RESP 16; O2SAT 96
[2024-05-17 13:46] LABS: Basophils Absolute Auto 0.1 K/mm3 (0.0-0.1); Basophils Percent Auto 0.6 % (0.2-1.2); Eosinophils Absolute Auto 0.3 K/mm3 (0-0.3); Eosinophils Percent Auto 3.7 % (0-4.4); Hematocrit 42.6 % (37.0-47.0); Hemoglobin 14.6 g/dL (12.0-15.0); Immature Granulocyte Absolute 0.03 K/mm3 (0.00-0.031); Immature Granulocyte Percent A 0.4 % (0-0.5); Lymphocytes Absolute Auto 1.63 K/mm3 (0.9-3.2); Lymphocytes Percent Auto 19.7 % (18.3-44.2); Mean Corpuscular HGB Conc 34.3 g/dl (32-36); Mean Corpuscular Hemoglobin 30.7 pg (26-34); Mean Corpuscular Volume 89.5 fl (80-100); Mean Platelet Volume 9.5 fl (7.4-10.4); Monocytes Absolute Auto 0.6 K/mm3 (0.1-0.6); Monocytes Percent Auto 7.7 % (2.6-8.5); Neutrophils Absolute Auto 5.6 K/mm3 (1.3-6.7); Neutrophils Percent Auto 67.9 % (45.5-73.1); Platelet Count Result 257 k/mm3 (150-375); Red Blood Count 4.76 M/mm3 (4.2-5.4); Red Cell Distribution Width 12.2 % (11.5-14.5); White Blood Count 8.3 K/mm3 (4.5-10.0)
[2024-05-17 13:57] LABS: Alanine Aminotransferase 37 U/L (6-35); Albumin Level 4.6 g/dL (3.5-5.1); Alkaline Phosphatase 103 U/L (38-126); Anion Gap 8 mmol/L (4-12); Aspartate Amino Transferase 30 U/L (14-36); Bilirubin,Total 0.7 mg/dL (0.2-1.3); Blood Urea Nitrogen 12 mg/dL (7-17); Calcium 9.2 mg/dL (8.4-10.2); Carbon Dioxide 26 mmol/L (22-30); Chloride 105 mmol/L (98-107); Estimated CRCL calculation 119 ml/min; Estimated Glomerular Filt Rate > 60; Glucose 85 mg/dL (65-110); Lipase 38 U/L (23-300); Potassium 3.3 mmol/L (3.4-5.0); Sodium 139 mmol/L (137-145)
[2024-05-17 14:05] LABS: Add Urine Microscopic? YES; Appearance Urine Cloudy (Clear); Bacteria Urine 1+ /hpf; Bilirubin Urine Negative (Negative); Blood Urine Negative (Negative); Color Urine Yellow (Yellow); Glucose Urine UA Negative (Negative); Ketones Urine Trace mg/dL (Negative); Leukocyte Esterase Ur Negative LEU/UL (Negative); Need Manual Microscopic Reviewed; Nitrate Urine Negative (Negative); Non Pathogenic Casts 0-2; Protein Urine Trace mg/dL (Negative); Specific Grav Ur 1.025 (1.001-1.035); Squamous Epithelial Cell Urine Few /hpf (Few); Urobilinogen Urine 0.2 mg/dL (<2.0); WBC Urine 0-5 /hpf (0-3); pH Urine 5.5 (5.0-9.0)
[2024-05-17 16:44] VITALS: BP 144/100; PULSE 86; RESP 16; TEMP 36.4; O2SAT 97
[2024-05-20 10:02] LABS: BEDSIDEPREGUCG Negative (Negative)
== END 2024-05-17 16:46 | disposition home or self-care (01) ==
PROVIDERS: Emergency Provider Emergency Medicine
DX: K57.32 Diverticulitis of large intestine without perforation or abscess without bleeding (principal); I10 Essential (primary) hypertension; Z97.5 Presence of (intrauterine) contraceptive device; Z87.440 Personal history of urinary (tract) infections; Z90.49 Acquired absence of other specified parts of digestive tract
CPT/HCPCS: 36415; 74177; 80053; 81001; 81025; 83690; 85025; 96374; 99284; J1885; Q9967

== ENCOUNTER 2024-06-24 08:00 | Outpatient (RCR) | payer OTHER, SELFPAY ==
--- NOTE | 2024-05-24 13:40 | OTOPEVAL1 ---
Assessment and note entered by John Medley, OTJorge L/Terrell, CHT OT Evaluation Information 05/24/24 Assessment Status Evaluation Diagnosis Bilateral lateral epicondylitis, synovitis and tenosynovitis Subjective Information Patient is right handed. Reports symptoms are worse on the right vs. left side. 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 She has had 2 rounds of injections to the lateral elbows and these have helped, however her symptoms persist, are exacerbated by work tasks. Difficulties with gripping and lifting. The most pain she feels is when she pushes through her palms. Reported Pain Level Additional Pain Score Comments (R) elbow: no pain at rest, 1-2/10 with lifting, at worst 3/10 (L) elbow: no pain at rest, 1-2/10 with lifting, at worst 3/10 (R) wrist: no pain at rest, 5/10 with hand use, at worst 5/10 (L) wrist: no pain at rest, 5/10 with hand use, at worst 5/10 Assessment OT Clinical Summary Patient referred to OT with bilateral lateral epicondylitis, bilateral extensor tenosynovitis with elbow, wrist, and hand pain. She presents with a decline in bilateral UE use due to deficits with pain and weakness. Skilled OT indicated to maximize functional use of bilateral UEs through use of modalities, therapeutic exercise, manual therapy, splinting PRN, and HEP instruction/ progression. Plan of Care Interventions Therapeutic Exercise,Manual Therapy,Therapeutic Activities,Hot Pack/Cold Pack,Check Out for Orthotic/Pr,Ultrasound,Paraffin OT Services Indicated Yes Treatment Frequency and 2x/week for 8 visits Duration These treatments will address the objective and functional deficits as defined above. The patient will be advanced safely and appropriately in order for the patient to progress towards his/her prior level of function. Additional exercises will be introduced and as well as a comprehensive home exercise program upon discharge, if needed, ?to ensure carryover of functional gains achieved in the clinic. This treatment plan has been reviewed and agreement upon by the patient.
--- NOTE | 2024-05-24 13:44 | OPREHPOC ---
Outpatient Therapy Plan of Care This is a Multidisciplinary Plan of Care that may contain components documented by all disciplines (PT, OT, and ST.) OT Problem 1 OT Problem #1 Knowledge Deficit OT Goal 1 Goal / Goal Update Patient to be independent with instructed materials. Target Visit 8 OT Problem 2 OT Problem #2 Pain OT Goal 1 Goal / Goal Update Patient to report reduced pain during ADLs to 2/10 at worst in the hands. Target Visit 8 OT Goal 2 Goal / Goal Update Patient to report reduced pain during ADLs to 2/10 at worst in the elbows. 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
--- NOTE | 2024-06-24 08:46 | OTOPDC ---
Assessment and note entered by John Medley, FIONA/Terrell, CHT OT Discharge Information 06/24/24 Assessment Status Discharge Diagnosis Bilateral lateral epicondylitis, synovitis and tenosynovitis Subjective Information Patient reports she is doing well, having no pain at rest and 1/10 pain at worst . She is no longer having difficulties pushing through her palms when getting herself out of bed. She reports no longer experiencing difficulties with gripping and lifting tasks. She reports she is doing well with her HEP. Reported Pain Level Additional Pain Score Comments Pain at rest 0/10 in bilateral wrists and elbows. Pain at worst 1/10 in bilateral wrists and elbows. During ADLs this morning she had 1/10 in the left wrist and no pain in either elbow or the right wrist. Assessment OT Clinical Summary Patient referred to OT with bilateral lateral epicondylitis and extensor tenosynovitis. She has responded very well to therapy and has been compliant with HEP. She has progressed to 3 lbs. for wrist strengthening without increased pain. She is able to complete case worker strengthening HEP without pain. Gross functional strength is WNL. She is independent with non-medication pain management (stretching, exercise, heat/ice). No further skilled OT indicated at this time. Plan of Care OT Services Indicated No
== END 2024-06-24 10:51 | disposition home or self-care (01) ==
LOC: ANHOT 08:00
PROVIDERS: Visit Provider Plastic Surgery
DX: M77.10 Lateral epicondylitis, unspecified elbow (principal); M65.90 Unspecified synovitis and tenosynovitis, unspecified site
CPT/HCPCS: 97018; 97035; 97110; 97140; 97165

== ENCOUNTER 2024-10-29 09:26 | Outpatient (CLI) | payer OTHER, SELFPAY ==
--- NOTE | ~2024-10-29 | XR_ITS ---
XR finger 4th LT min 2V Ordering provider: Bang Curry MD History: . CRUSHED 4TH DIGIT 1 MONTH AGO/PAIN PERSISTS . Comparison: None. FINDINGS: BONES: No acute fracture or dislocation. JOINT SPACES: Normal. SOFT TISSUES: Normal. IMPRESSION: No acute osseous abnormality. Reviewed, dictated and finalized at location A.
--- OUTSIDE RECORDS SUMMARY | 2024-10-29 10:22 | XMS_ITS | Encounter Summary ---
Author Organization [facility] Address [address] [place] [address] Care Team Providers Care Beauty Director Name Role Phone Domi Rock MD Primary Care Provider Reason for Visit * Reason Onset Date Comments Appointment 08/28/2024 Encounter Details Date Type Department Care Team (Late st Contact Info) Description 08/28/[address] 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 Answer Date of Assessment Author No 12/20/2017 8:58 PM CDT Lydia Bui RN * Is person blind or have serious difficulty seeing? Answer Date of Assessment Author No 12/20/2017 8:58 PM CDT Lydia Bui RN * Does person have serious difficulty walking/climbing stairs? Answer Date of Assessment Author No 12/20/2017 8:58 PM CDT Lydia Bui RN * Does person have difficulty dressing/bathing? Answer Date of Assessment Author No 12/20/2017 8:58 PM JAYSONT Lydia Bui RN * Does person have difficulty doing errands alone? Answer Date of Assessment Author No 12/20/2017 8:58 PM JAYSONT Lydia Bui RN documented as of this encounter Mental Status * Does person have difficulty concentrating/remembering/making decisions? Answer Entry Date Author No 12/20/2017 8:58 PM Lydia Ferrari RN documented in this encounter Miscellaneous Notes * Telephone Encounter - Teddy Mcmanus - 08/28/2024 9:43 AM CST Manisha Tejada Germain called and cancelled their same day appointment Appointment Date: 08/28 Appointment Time: 11:40a If rescheduled: N/A Provider: Isaias RAL PRE ARRANGEMENT COUNSELOR documented in this encounter Plan of Treatment Not on file documented as of this encounter Goals Goal Patient Goal Type Associated Problems Recent Progress Patient-Stated? Author Mobility General No change( 021 9:05 AM CDT) No Mini Barnes RN Note: Expected end date: 07/02/2021 The goal is to maintain or improve your mobility at the optimum level for you. Interventions: documented as of this encounter Visit Diagnoses Not on filedocumented in this encounter Care Teams Beauty Director Relationship Specialty Start Date End Date Domi Rock MD [address] [place] [id number] PCP - General Internal Medicine 05/15/24 documented as of this encounter
--- OUTSIDE RECORDS SUMMARY | 2024-10-29 10:22 | XMS_ITS | Encounter Summary ---
Author Organization [facility] Address [address] [place] [address] Care Team Providers Care Dairy Nutritionist Name Role Phone Harper Hager BEACH EXPERT[facility] Primary Care Provi rachel Jenn Horton BEACH EXPERT-ELECTRIC KNIFE OPERATOR Primary Care Provider [phone] Domi Rock MD Primary Care Provider Encounter Details Date Type Department Care Team (Late st Contact Info) Description 03/22/2019 Lab Requisition [facility] [address] [place] [id number] Unlisted, Ordering Provider, Social History Tobacco Use Types Packs/Day Years Used Date Smoking Tobacco: Never Smokeless Tobacco: Never Alcohol Use Standard Drinks/Week Comments No 0 (1 standard drink = 0.6 oz pur e alcohol) Comments No Sex and Gender Information Value Date Recorded Sex Assigned at Not on file 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 Answer Entry Date Author No 12/20/2017 8:58 PM CDT Lydia Bui RN documented in this encounter Plan of Treatment Not on file documented as of this encounter Visit Diagnoses Not on filedocumented in this encounter Additional Health Concerns Infection Onset Date Last Indicated Resolved Time COVID-19 Confirmed 03/15/2021 03/15/2021 4:33 AM CDT documented as of this encounter Care Teams Dairy Nutritionist Relationship Specialty Start Date End Date Harper Hager APRN-ELECTRIC KNIFE OPERATOR PCP - General 01/02/17 04/26/22 Jenn Horton APRN-ELECTRIC KNIFE OPERATOR [address] [place] [address] PCP - General 04/27/22 05/14/24 Domi Rock MD [address] [place] [id number] PCP - General Internal Medicine 05/15/24 documented as of this encounter
--- OUTSIDE RECORDS SUMMARY | 2024-10-29 10:22 | XMS_ITS | Clinical Summary ---
Author Organization [facility] Address [address] [place] [address] Care Team Providers Care Enterprise Cloud Architect Name Role Phone Domi Rock MD Primary Care Provider Source Comments [facility],non-owned Affiliates and Associated Physician Practices is amultiple site organization consisting of ambulatory clinics and hospital sitesin [place], [place], [place] and [place]. This disclosure is being madepursuant to the Care Everywhere program and may not contain all information available regarding this patient. Last updated 18.[facility] Allergies Active Allergy Reactions Criticality Noted Date Comments Codegest Skin Reactions Medium 10/29/2015 Zolmitriptan Anaphylaxis High 10/29/2015 Medications * Be aware that medications may not be up to date on this document. Alwaysverify current medications with the patient. cetirizine-pseu doephedrine 12hr (ZYRTEC-D ALLERGY & CONGESTION) 5-120 MG tablet Take 1 tablet by mouth 2 times daily 180 tablet 3 8 Active ibuprofen (Motrin) 600 MG tablet Take 1 (one) tablet by mouth every 6 hours as needed 60 tablet 1 3 Active levonorgestrel (Mirena) 20 MCG/DAY IUD by Intrauterine route as directed Active meloxicam (Mobic) 15 MG tablet Take 1 (one) tablet by mouth once daily 30 tablet 2 4 Active cyclobenzaprine (Flexeril) 5 MG tablet Take 1 (one) tablet by mouth 3 times daily as needed 50 tablet 1 4 Active vitamin D3 (Cholecalcifero l) 25 MCG (1000 UNITS) tablet Take 1 (one) tablet by mouth once daily Active losartan (Cozaar) 50 MG tablet Take 1 (one) tablet by mouth once daily 90 tablet 3 5 Active Active Problems Problem Noted Date Diagnosed Date Vitamin D deficiency 05/15/2024 Dislocation of finger PIP joint, sequela 021 Finger pain, right 08/30/2020 Acute rhinosinusitis 11/20/2018 Migraine without status migrainosus, not intract able 01/12/2018 Allergic rhinitis 02/02/2016 Obesity 02/02/2016 Essential (primary) hypertension 02/02/2016 Other intervertebral disc displacement, lumbar r egion 02/02/2016 Resolved Problems Problem Noted Date Diagnosed Date Resolved Date History of tonsillectomy 01/12/2018 Bradycardia following surgery 01/12/2018 07/31/2018 Chronic tonsillitis 12/20/2017 01/13/20 18 Panic disorder without agoraphobia 02/02/2016 05/15/2024 Panic attacks 02/02/2016 05/15/2024 Encounters Date Type Department Care Team Description 10/15/2024 Bulk Orders Only [facility] Family [facility] [address] [place] [address] Domi Rock MD Screening mammogram for breast cancer 08/28/2024 Telephone [facility] [address] [place] [address] Domi Rock MD Appointment 08/22/2024 Nurse Triage [address], [address] [place] [address] Domi Rock MD Referral from Last 3 Months Immunizations Immunization Administration Dates Next Due COVID PFIZER 12+YR 30MCG/0.3mL 06/15/2023 COVID PFIZER BIVALENT 12Y+ 30mcg/0.3ML Covid Pfizer primary monoval ent 12+ yr 0.3mL Purple cap 04/27/2021,07/20/2020,06/28/2020 DTaP VACCINE IM (6wk-6yrs) 10/05/2015 INFLUENZA VACCINE 04/15/2022,04/12/2018 INFLUENZA VACCINE, CELL CULT URE, QUADR. (FLUCELVAX QUADRIVALENT; 6MO+) (CCIIV4) 04/15/2022 INFLUENZA VACCINE, QUADR. (F LUZONE; FLULAVAL; FLUARIX; AFLURIA QUADRIVALENT; 6MO+), 0.5 ML (IIV4) 05/22/2023,05/10/2020 INFLUENZA VACCINE, TRIV. (FL UZONE; FLULAVAL; FLUARIX; AFLURIA TRIVALENT; 6MO+), 0.5 ML (IIV3) 05/15/2024 Family History Medical History Relation Name Comments Alcohol abuse Father Anxiety Disorder Father Hypertension Father Status: Alive CAD (Coronary Artery Disease) Maternal Grandfather Status: Cancer - Renal Maternal Grandfather Diabetes Maternal Grandfather Hypertension Maternal Grandfather Alzheimer's Disease Maternal Grandmother Diabetes Maternal Grandmother Status: Hypertension Maternal Grandmother Diabetes Mother Status: Alive Hypertension Mother Peripheral Vascular Disease Mother Alcohol abuse Paternal Grandfather Cancer Paternal Grandfather Pancrea tic; Status: Cirrhosis Paternal Grandfather Dementia Paternal Grandmother Diabetes Paternal Grandmother Parkinson's Disease Paternal Grandmother Relation Name Status Comments Father Alive Maternal Grandfather Maternal Grandmother Mother Alive Paternal Grandfather Paternal Grandmother Social History Tobacco Use Types Packs/Day Years Used Date Smoking Tobacco: Never Smokeless Tobacco: Never Tobacco Cessation:Counseling Given: No Alcohol Use Standard Drinks/Week Comments Not Currently 0 (1 standard drink = 0.6 oz pur e alcohol) Occasional- last year PHQ-2 Answer Date Recorded Patient Health Questionnaire-2 Score 0 07/15/2024 Comments No Sex and Gender Information Value Date Recorded Sex Assigned at Not on file Legal Sex Female 5:21 PM SLAB OFF MILL TENDER Gender Identity Not on file Sexual Orientation Not on file 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 on file Not on file Not on file Last Filed Vital Signs Vital Sign Reading Time Taken Comments Blood Pressure 132/93 07/15/2024 10:06 AM SLAB OFF MILL TENDER Pulse 67 07/15/2024 10:06 AM SLAB OFF MILL TENDER Temperature 35.9 C (96.7 F) 07/15/2024 10:06 AM SLAB OFF MILL TENDER Respiratory Rate 15 10/19/2022 2:22 PM CDT Oxygen Saturation 99% 07/15/2024 10: 06 AM SLAB OFF MILL TENDER Inhaled Oxygen Concentration - - Weight 125.7 kg (277 lb 3.2 oz) 025 10:06 AM SLAB OFF MILL TENDER Height 167.6 cm (5' 6 ) 07/15/2024 10:0 6 AM SLAB OFF MILL TENDER Body Mass Index 44.74 07/15/2024 10:06 AM SLAB OFF MILL TENDER Plan of Treatment Health Maintenance Due Date Last Done Comments MAMMOGRAM 1981 HEPATITIS B VACCINE (1 of 3 - 19+ 3-dose series) 01/27/2000 COVID-19 VACCINE ( season) 2025 06/15/2023, 03/14/2022, 04/27/2021, Additional history exists Postponed from 03/03/2024 (Patient Directed) DTAP/TDAP/TD VACCINES (2 - Tdap) 10/04/2025 10/05/2015 SCREENING FOR DIABETES 06/03/2027 , 06/03/2024, 01/04/2022, Additional history exists PAP SMEAR 06/17/2027 06/17/2024, 01/31, 10/31/2016 (Done Outside Per Patient) LIPID TESTING 06/03/2029 06/03/2024, 12/31, 01/04/2022, Additional history exists ZOSTER VACCINE (1 of 2) 2031 HEPATITIS C SCREENING Completed 01/04/2022 HIV SCREENING Completed 01/04/2022 INFLUENZA VACCINE Completed 05/15/2024, , 04/15/2022, Additional history exists DEPRESSION SCREENING Completed 07/15/2024, 11/16/2023, 08/31/2022 HIB VACCINE Aged Out No longer eligi ble based on patient's age to complete this topic HPV VACCINE Aged Out No longer eligi ble based on patient's age to complete this topic MENINGOCOCCAL (Group B) VACCINE SHARED DECISION-MAKING Aged Out No longer eligible based on patient's age to complete this topic MENINGOCOCCAL GROUPS A/C/Y/W VACCINE Aged Out No longer eligible based on patient's age to complete this topic PNEUMOCOCCAL VACCINE Aged Out No long er eligible based on patient's age to complete this topic Goals Goal Patient Goal Type Associated Problems Recent Progress Patient-Stated? Author Mobility General No change( 021 9:05 AM CDT) No Mini Barnes RN Note: Expected end date: 07/02/2021 The goal is to maintain or improve your mobility at the optimum level for you. Interventions: Medical Devices Implanted Type Area Family Partner Device Identifier Shelf Expiration Date Model / Serial / Lot Marbella Swivelock Suture [place] Implanted:Qty: 1 on 01/05/2021 by Mark Morley MD at [facility] Right: Hand [employer] 06/01/2025 AR-8998T / / [id number] Marbella Swivelock Suture [place] Implanted:Qty: 1 on 01/05/2021 by Mark Morley MD at [facility] Right: Hand [employer] 08/02/2025 AR-[id number] / / [id number] [place] Fx Crkscr Ft Fbrwr 3-0 Marbella 2 Ndl Implanted:Qty: 1 on 01/05/2021 by Mark Morley MD at [facility] Right: Hand [employer] 09/30/2024 AR-[id number] / / [id number] Procedures Procedure Name Priority Date/Time Associated Diagnosis Comments COMPREHENSIVE METABOLIC PANEL Routine 06/03/2024 9:54 AM SLAB OFF MILL TENDER Healthcare maintenance Essential (primary) hypertension LIPID PROFILE Routine 06/03/2024 9:54 AM SLAB OFF MILL TENDER Healthcare maintenance Essential (primary) hypertension HEPATITIS C ANTIBODY W RFLX PCR Routine 01/04/2022 12:00 PM CDT Dislocation of finger PIP joint, sequela HIV-1 HIV-2 ANTIBODY + HIV P24 AG PANEL Routine 01/04/2022 11:57 AM CDT Encounter for screening for HIV from Last 3 Months or Most Recently Relevant to Health Maintenance Results * COMPREHENSIVE METABOLIC PANEL (06/03/2024 9:54 AM SLAB OFF MILL TENDER) Glucose 84 70 - 99 mg/dL [facility] INSURANCE BILL BUN 11 6 - 24 mg/dL [facility] INSURANCE BILL Creatinine 0.74 0.57 - 1.00 mg/dL [facility] INSURANCE BILL eGFR by CKD-EPI 103 >59 mL/min/1.7 3 [facility] INSURANCE BILL BUN/Creatinine Ratio 15 9 - 23 [facility] INSURANCE BILL Sodium 139 134 - 144 mmol/L [facility] INSURANCE BILL Potassium 4.3 3.5 - 5.2 mmol/L [facility] INSURANCE BILL Chloride 103 96 - 106 mmol/L [facility] INSURANCE BILL CO2 22 20 - 29 mmol/L [facility] INSURANCE BILL Calcium 9.4 8.7 - 10.2 mg/dL [facility] INSURANCE BILL Protein Total 7.1 6.0 - 8.5 g/dL [facility] INSURANCE BILL Albumin 4.5 3.9 - 4.9 g/dL [facility] INSURANCE BILL Globulin Total 2.6 1.5 - 4.5 g/dL [facility] INSURANCE BILL Bilirubin Total 0.4 0.0 - 1.2 mg/dL [facility] INSURANCE BILL Alkaline Phosphatase 107 44 - 121 IU/L [facility] INSURANCE BILL AST 12 0 - 40 IU/L [facility] INSURANCE BILL ALT 19 0 - 32 IU/L [facility] INSURANCE BILL Blood BLOOD SPECIMEN / Unknown 06/03/2024 9:54 AM SLAB OFF MILL TENDER 06/03/2024 Narrative [facility] INSURANCE BILL - 06/04/2024 7:11 AM SLAB OFF MILL TENDER Performed at: 01 - [facility] [id number] [place], [place] [id number] Director Sanitation Bureau: Julio Quiroz PhD, Phone: [phone] us Domi Rock MD LAB - CHEMISTRY ORDERAB LES Final Result [facility] INSURANCE BILL [address] [place] [address] * (ABNORMAL) LIPID PROFILE (06/03/2024 9:54 AM SLAB OFF MILL TENDER) Cholesterol 213(H) 100 - 199 mg/dL [facility] INSURANCE BILL Triglycerides 87 0 - 149 mg/dL [facility] INSURANCE BILL HDL Cholesterol 57 >39 mg/dL [facility] INSURANCE BILL VLDL Calculated 15 5 - 40 mg/dL [facility] INSURANCE BILL LDL Calculated 141(H) 0 - 99 mg/dL [facility] INSURANCE BILL Blood BLOOD SPECIMEN / Unknown 06/03/2024 9:54 AM SLAB OFF MILL TENDER 06/03/2024 Narrative [facility] INSURANCE BILL - 06/04/2024 8:18 AM SLAB OFF MILL TENDER Performed at: [address] [id number] Director Sanitation Bureau: Julio Quiroz PhD, Phone: [phone] us Domi Rock MD LAB - CHEMISTRY ORDERAB LES Final Result Performing Organization Address City/[facility]/ZIP Co de Phone Number [facility] [address] [place] [address] * HEPATITIS C ANTIBODY W RFLX PCR (01/04/2022 12:00 PM CDT) Hepatitis C Antibody <0.1 0.0 - 0.9 s/co ratio 01/06/2022 12:10 PM CDT [facility] ([facility]) Blood BLOOD SPECIMEN / Unknown Lab Venipuncture / Unknown 01/04/2022 12:00 PM CDT 01/04/2022 12:32 PM CDT Narrative [facility] ([facility]) - 01/06/2022 12:10 PM CDT Performed at: - [facility] [address] [place], [place] [id number] Director Sanitation Bureau: Julio Quiroz PhD, Phone: [phone] us Harper Hager APRN-LADIES UNDERWEAR OPERATOR LAB - CHEMISTRY ORD ERABLES Final Result Performing Organization Address City/[facility]/ZIP Co de Phone Number [facility] ([facility]) [address] [place] [address], [facility] * HIV-1 HIV-2 ANTIBODY + HIV P24 AG PANEL (01/04/2022 11:57 AM CDT) HIV Antigen/Antibod y 1 & 2 Non-reacti ve Non-react gerardo 01/04/2022 1:12 PM CDT [facility] Comment:No Laboratory eviden ce of HIV infection. Blood BLOOD SPECIMEN / Unknown Lab Venipuncture / Unknown 01/04/2022 11:57 AM CDT 01/04/2022 12:31 PM CDT us Harper Hager MANAGER OF QUALITY-LADIES UNDERWEAR OPERATOR LAB - CHEMISTRY ORD ERABLES Final Result [facility] [address] [place] [address], [facility] [phone] from Last 3 Months or Most Recently Relevant to Health Maintenance Insurance [facility] [place] [id number] [facility] [place] [address] [facility] Advance Directives * Full Code (Latest Code Status on File) Date Activated Date Inactivated Comments 12/20/2017 7:59 PM 12/21/2017 10:59 AM Care Teams Enterprise Cloud Architect Relationship Specialty Start Date End Date Domi Rock MD [address] [place] [address] PCP - General Internal Medicine 05/15/24
--- OUTSIDE RECORDS SUMMARY | 2024-10-29 10:22 | XMS_ITS | Encounter Summary ---
Author Organization [facility] Address [address] [place] [address] Care Team Providers Care Metal Furniture Polisher Name Role Phone Harper Hager DIRECTOR OF CONTENT MARKETING-[facility] Primary Care Provi rachel Jenn Horton DIRECTOR OF CONTENT MARKETING-DIRECTOR FRAUD Primary Care Provider [phone]- [phone] Domi Rock MD Primary Care Provider Encounter Details Date Type Department Care Team (Late st Contact Info) Description 04/01/2019 Lab Requisition [facility] [address] [place] [address] Unlisted, Ordering Provider, Social History Tobacco Use Types Packs/Day Years Used Date Smoking Tobacco: Never Smokeless Tobacco: Never Alcohol Use Standard Drinks/Week Comments No 0 (1 standard drink = 0.6 oz pur e alcohol) Comments No Sex and Gender Information Value Date Recorded Sex Assigned at Not on file Legal Sex Female 5:21 PM CUTTER HAND Gender Identity Not on file Sexual Orientation [...] on file documented as of this encounter Procedures Procedure Name Priority Date/Time Associated Diagnosis Comments GLUCOSE VITALITY Routine 04/02/2019 10:0 7 AM CDT HEMOGLOBIN A1C Routine 04/02/2019 10:07 AM CDT LIPID PROFILE Routine 04/02/2019 10:07 AM CDT documented in this encounter Results * HEMOGLOBIN A1C (04/02/2019 10:07 AM CDT) Hemoglobin A1c 5.2 4.4 - 6.3 % 04/02/2019 2:54 PM CDT [facility] Estimated Average Glucose 103 mg/dL 04/02/2019 2:54 PM CDT [facility] Comment: HbA1c Interpretation: Treatment target values recommended by ADA and other clinical organizations should be used to evaluate metabolic control in patients. Treatment Target Values: Normal : < 5.7% Pre-diabetes: 5.7-6.4% Diabetes: Equal to or greater than 6.5% Reference: [place] Diabetes Association Standards of Care in Diabetes -2014 In patients 70 years and older consider HbA1c target range of 7.0-7.5% Reference: Diabetes Mellitus in Older People: Position Statement on behalf of the International Association of Gerontology and Geriatrics (IAGG), the Diabetes Working Republican for Older People (EDWPOP), and the International Task Force of Experts in Diabetes. Giorgio Ocampo, et al. J [place] Medical Directors Association. 2012 Test results diagnostic of diabetes should be repeated for confirmation. The Sebia Capillary 2 assay for the measurement of HbA1c is a National Glycohemoglobin Standardization Program (NGSP)certified method. Blood BLOOD SPECIMEN / Unknown Lab Venipuncture / Unknown 04/02/2019 10:07 AM CDT 04/02/2019 10:07 AM CDT us Ordering Provider Unlisted MD LAB - CHEMISTRY OR DERABLES Final Result Performing Organization Address [facility]/State/ZIP Co de Phone Number [address] [phone] * LIPID PROFILE (04/02/2019 10:07 AM CDT) [facility] Signature Cholesterol Total 149 <200 mg/dL 04/02/2019 10:51 AM [facility] HDL 48 >40 mg/dL 04/02/2019 10:51 AM [facility] Comment: ATP III Classification of HDL Cholesterol: <40 mg/dL: Considered a major risk factor. >60 mg/dL: Considered a negative risk factor. LDL Calculated 89 <100 mg/dL 04/02/2019 10:51 AM [facility] Comment: ATP III Classification of LDL Cholesterol: <100 mg/dL: Optimal 100 - 129 mg/dL: Near Optimal/Above Optimal 130 - 159 mg/dL: Borderline High 160 - 189 mg/dL: High >190 mg/dL: Very High Triglycerides 59 <150 mg/dL 04/02/2019 10:51 AM [facility] Comment: ATP III Classification of Triglycerides: <150 mg/dL: Normal 150 - 199 mg/dL: Borderline High 200 - 400 mg/dL: High >500 mg/dL: Very High Blood BLOOD SPECIMEN / Unknown Lab Venipuncture / Unknown 04/02/2019 10:07 AM CDT 04/02/2019 10:07 AM CDT us Ordering Provider Unlisted MD LAB - CHEMISTRY OR DERABLES Final Result [facility] [address] [place] [address], [facility] [phone] * (ABNORMAL) GLUCOSE VITALITY (04/02/2019 10:07 AM CDT) Glucose 69(L) 70 - 115 mg/dL 04/02/2019 10:39 AM CDT [facility] Blood BLOOD SPECIMEN / Unknown Lab Venipuncture / Unknown 04/02/2019 10:07 AM CDT 04/02/2019 10:07 AM CDT us Ordering Provider Unlisted MD LAB - CHEMISTRY OR DERABLES Final Result Performing Organization Address [facility]/ZIP Co de Phone Number [address] [address], [facility] [phone] documented in this encounter Visit Diagnoses Not on filedocumented in this encounter Additional Health Concerns Infection Onset Date Last Indicated Resolved Time COVID-19 Confirmed 03/15/2021 03/15/2021 1 4:33 AM CDT documented as of this encounter Care Teams Metal Furniture Polisher Relationship Specialty Start Date End Date Harper Hager DIRECTOR OF CONTENT MARKETING-DIRECTOR FRAUD PCP - General 01/02/17 04/26/22 Jenn Horton DIRECTOR OF CONTENT MARKETING-DIRECTOR FRAUD [address] [place] [address] PCP - General 04/27/22 05/14/24 Domi Rock MD [address] [place] [address] PCP - General Internal Medicine 05/15/24 documented as of this encounter
--- OUTSIDE RECORDS SUMMARY | 2024-10-29 10:22 | XMS_ITS | Encounter Summary ---
Author Organization [facility] Address [address] [place] [address] Care Team Providers Care Drums Teacher Name Role Phone Harper Hager RADIO DIVISION OFFICER-PIPELINE INTEGRITY ENGINEER Primary Care Provi rachel Jenn Horton RADIO DIVISION OFFICER-PIPELINE INTEGRITY ENGINEER Primary Care Provider [phone]- [phone] Domi Rock MD Primary Care Provider Encounter Details Date Type Department Care Team (Late st Contact Info) Description 05/02/2018 Lab Requisition [facility] [address] [place] [id number] Unlisted, Ordering Provider, Social History Tobacco Use Types Packs/Day Years Used Date Smoking Tobacco: Never Smokeless Tobacco: Never Alcohol Use Standard Drinks/Week Comments No 0 (1 standard drink = 0.6 oz pur e alcohol) Comments No Sex and Gender Information Value Date Recorded Sex Assigned at Not on file Legal Sex Female 5:21 PM ANTI AIR WARFARE OPERATIONS OFFICER Gender Identity Not on file Sexual Orientation Not on file documented as of this encounter Functional Status * Is person deaf or have serious hearing difficulty? Answer Date of Assessment Author No 12/20/2017 8:58 PM CDT Lydia Bui, RN * Is person blind or have serious difficulty seeing? Answer Date of Assessment Author No 12/20/2017 8:58 PM CDT Lydia Bui RN * Does person have serious difficulty walking/climbing stairs? Answer Date of Assessment Author No 12/20/2017 8:58 PM JAYSONT Lydia Bui RN * Does person have difficulty dressing/bathing? Answer Date of Assessment Author No 12/20/2017 8:58 PM Lydia Ferrari RN * Does person have difficulty doing errands alone? Answer Date of Assessment Author No 12/20/2017 8:58 PM CDT Lydia Bui RN documented as of this encounter Mental Status * Does person have difficulty concentrating/remembering/making decisions? Answer Entry Date Author No 12/20/2017 8:58 PM Lydia Ferrari RN documented in this encounter Plan of Treatment Not on file documented as of this encounter Procedures Procedure Name Priority Date/Time Associated Diagnosis Comments GLUCOSE VITALITY Routine 05/03/2018 6:50 AM CDT HEMOGLOBIN A1C Routine 05/03/2018 6:50 AM CDT LIPID PROFILE Routine 05/03/2018 6:50 AM CDT documented in this encounter Results * HEMOGLOBIN A1C (05/03/2018 6:50 AM CDT) [facility] Signature Hemoglobin A1c 5.1 4.4 - 6.3 % 05/03/2018 11:33 AM CDT [facility] Estimated Average Glucose 100 mg/dL 05/03/2018 11:33 AM CDT [facility] Comment: HbA1c Interpretation: Treatment target values recommended by ADA and other clinical organizations should be used to evaluate metabolic control in patients. Treatment Target Values: Normal : < 5.7% Pre-diabetes: 5.7-6.4% Diabetes: Equal to or greater than 6.5% Reference: [place] Diabetes Association Standards of Care in Diabetes -2014 In patients 70 years and older consider HbA1c target range of 7.0-7.5% Reference: Diabetes Mellitus in Older People: Position Statement on behalf of the International Association of Gerontology and Geriatrics (IAGG), the Diabetes Working Green Party for Older People (EDWPOP), and the International Task Force of Experts in Diabetes. hannah Farnsworth al. J [place] Medical Directors Association. 2012 Test results diagnostic of diabetes should be repeated for confirmation. The Tosoh G8 assay for the measurement of HbA1c is a National Glycohemoglobin Standardization Program (NGSP)certified method. Results for patients with HbE disease should be interpreted with caution as this hemoglobinopathy has been shown to interfere with the Tosoh G8 assay. Blood BLOOD SPECIMEN / Unknown 05/03/2018 6:50 AM CDT 05/03/2018 9:53 AM CDT us Ordering Provider Unlisted MD LAB - CHEMISTRY OR DERABLES Final Result [address] [phone] * (ABNORMAL) LIPID PROFILE (05/03/2018 6:50 AM CDT) [facility] Signature Cholesterol Total 179 <200 mg/dL 05/03/2018 10:33 AM [facility] HDL 46 >40 mg/dL 05/03/2018 10:33 AM [facility] Comment: ATP III Classification of HDL Cholesterol: <40 mg/dL: Considered a major risk factor. >60 mg/dL: Considered a negative risk factor. LDL Calculated 117(H) <100 mg/dL 05/03/2018 10:33 AM [facility] Comment: ATP III Classification of LDL Cholesterol: <100 mg/dL: Optimal 100 - 129 mg/dL: Near Optimal/Above Optimal 130 - 159 mg/dL: Borderline High 160 - 189 mg/dL: High >190 mg/dL: Very High Triglycerides 80 <150 mg/dL 05/03/2018 10:33 AM [facility] Comment: ATP III Classification of Triglycerides: <150 mg/dL: Normal 150 - 199 mg/dL: Borderline High 200 - 400 mg/dL: High >500 mg/dL: Very High Blood BLOOD SPECIMEN / Unknown 05/03/2018 6:50 AM CDT 05/03/2018 9:53 AM CDT us Ordering Provider Unlisted MD LAB - CHEMISTRY OR DERABLES Final Result [facility] [address] [place] [address], [facility] [phone] * GLUCOSE VITALITY (05/03/2018 6:50 AM CDT) Glucose 73 70 - 115 mg/dL 05/03/2018 10:31 AM CDT [facility] Blood BLOOD SPECIMEN / Unknown 05/03/2018 6:50 AM CDT 05/03/2018 9:53 AM CDT us Ordering Provider Unlisted MD LAB - CHEMISTRY OR DERABLES Final Result Performing Organization Address City/[facility]/ZIP Co de Phone Number [address] [address], [facility] [phone] documented in this encounter Visit Diagnoses Not on filedocumented in this encounter Additional Health Concerns Infection Onset Date Last Indicated Resolved Time COVID-19 Confirmed 03/15/2021 03/15/2021 4:33 AM CDT documented as of this encounter Care Teams Drums Teacher Relationship Specialty Start Date End Date Harper Hager RADIO DIVISION OFFICER-PIPELINE INTEGRITY ENGINEER PCP - General 01/02/17 04/26/22 Jenn Horton, RADIO DIVISION OFFICER-PIPELINE INTEGRITY ENGINEER [address] [place] [address] PCP - General 04/27/22 05/14/24 Domi Rock MD [address] [place] [address] PCP - General Internal Medicine 05/15/24 documented as of this encounter
== END 2024-10-29 09:27 | disposition home or self-care (01) ==
PROVIDERS: Visit Provider Plastic Surgery
DX: M79.644 Pain in right finger(s) (principal)
CPT/HCPCS: 73140

== ENCOUNTER 2025-02-21 08:42 | Outpatient (CLI) | payer OTHER, SELFPAY ==
--- NOTE | ~2025-02-21 | MR_ITS ---
EXAMINATION: MR elbow LT wo con DATE: 02/21/2025 09:12 INDICATION: Left elbow pain with lateral epicondylitis TECHNIQUE: Magnetic resonance imaging (MRI) of the left elbow was performed without intravenous contrast. Sequences included coronal, axial, and sagittal PD-weighted FS FSE and coronal, axial, and sagittal PD-weighted FSE. COMPARISON: None FINDINGS: Osseous/other: Normal alignment. Normal marrow signal with no marrow edema, fracture, osteochondral lesion or abnormal marrow replacing process. Tendons: Triceps, biceps brachii and brachialis tendons are normal. Common flexor tendon wad is normal. The common extensor tendon wad is normal. Ligaments: The medial and lateral collateral ligament complexes are normal. Cubital tunnel: Cubital tunnel is unremarkable with normal signal and caliber of the ulnar nerve. Fluid: Physiologic amount of fluid the elbow joint. IMPRESSION: 1. Normal MRI of the left elbow. Reviewed, dictated and finalized at location A.
--- NOTE | ~2025-02-21 | MR_ITS ---
EXAMINATION: MR elbow RT wo con DATE: 02/21/2025 09:32 INDICATION: Lateral epicondylitis at the right elbow TECHNIQUE: Magnetic resonance imaging (MRI) of the right elbow was performed without intravenous contrast. Sequences included coronal, axial, and sagittal PD-weighted FS FSE and coronal, axial, and sagittal PD-weighted FSE. COMPARISON: None FINDINGS: Osseous/other: Normal alignment. Normal marrow signal with no marrow edema, fracture, osteochondral lesion or abnormal marrow replacing process. 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 Tendons: Triceps, biceps brachii and brachialis tendons are normal. Common flexor tendon wad is normal. The common extensor tendon wad is normal. Ligaments: The medial and lateral collateral ligament complexes are normal. Cubital tunnel: Cubital tunnel is unremarkable with normal signal and caliber of the ulnar nerve. Fluid: Physiologic amount of fluid the elbow joint. IMPRESSION: 1. 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 Otherwise unremarkable right elbow MRI. Reviewed, dictated and finalized at location A. IMPRESSION: 1. 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 Otherwise unrem arkable right elbow MRI.
== END 2025-02-21 08:43 | disposition home or self-care (01) ==
PROVIDERS: PCP Orthopaedic Surgery; Visit Provider Orthopaedic Surgery
DX: M77.11 Lateral epicondylitis, right elbow (principal); M77.12 Lateral epicondylitis, left elbow; M19.021 Primary osteoarthritis, right elbow
CPT/HCPCS: 73221

== ENCOUNTER 2025-05-19 10:56 | Emergency (ER) | payer OTHER, SELFPAY ==
--- NOTE | 2025-05-19 10:59 | ED.EAR ---
HPI - Ear Problem General Chief complaint: Ear Stated complaint: L Ear Source: patient and RN notes reviewed Mode of arrival: ambulatory Limitations: no limitations History of Present Illness HPI Narrative: Patient is a 45-year-old female who presents to the [facility] with complaints of bilateral ear pain and drainage. Patient states that the left ear pain is worse than the right. She has noted some mild clear drainage from the ears. States that the pain is been present for approximately 2-3 weeks but has worsened over the past few days. She denies decreased hearing. Denies recent fevers. Related Data Home Medications ?Medication ?Instructions ?Recorded ?Confirmed ?Last Taken ?Type levonorgestrel (Mirena) 1 device intrauterine ONCE 02/04/22 02/24/25 Unknown History ergocalciferol (vitamin D2) 1,250 05/19/25 Unknown History mcg (50,000 unit) capsule Allergies Allergy/AdvReac Type Severity Reaction Status Date / Time zolmitriptan Allergy Severe ANAPHYLAXIS Verified 02/24/25 15:26 NALDECON AdvReac Mild HIVES Uncoded 02/24/25 15:26 Review of Systems Review of Systems: CONSTITUTIONAL: Denies fever, chills, or sweats. EYES: Denies visual changes, redness, or discharge. ENT: Reports otalgia CARDIOVASCULAR: Denies chest pain, palpitations, or edema. RESPIRATORY: Denies cough or dyspnea. GASTROINTESTINAL: Denies abdominal pain, nausea, vomiting, or diarrhea. GENITOURINARY: Denies dysuria or hematuria. SKIN: Denies rash or itching. MUSCULOSKELETAL: Denies back pain, joint pain, or myalgia. NEUROLOGIC: Denies headache, numbness, or weakness. Pertinent positives per HPI. [facility] Past Medical History Medical History Anxiety and depression Bulging lumbar disc UTI (urinary tract infection) Hypertension Elevated serum cholesterol Hx of migraine headaches Seasonal allergies Surgical History Surgical History Hx of cholecystectomy History of dilatation and curettage Hx of tonsillectomy Family History Family History Mother Hypertension Diabetes mellitus Grandparent Emphysema lung Cancer Social History Social History Smoking status: Never smoker Alcohol intake: current Alcohol use details: rare social Substance use: never Living arrangements: with family Gender identity (if verbalized by the patient): Female Comments At the time of my signature, I reviewed and agree with the nursing past medical, surgical, social, and family history. There is no relevant family history pertinent to the patient complaint. Exam Narrative: GENERAL: This is a well-nourished, well-developed patient, in no apparent distress. HEAD: normocephalic, atraumatic. EYES: Sclera clear/white. Vision is grossly intact. EARS: External ears normal. Bilateral auditory canals edematous with effusion. Right TM erythematous. Left TM erythematous and bulging. Hearing grossly intact. NOSE: External nose normal with no obvious nasal discharge, nares without redness, no rhinorrhea. THROAT: Mucous membranes moist, posterior pharynx clear. NECK: Neck supple, non-tender without lymphadenopathy, masses or thyromegaly. CARDIOVASCULAR: Regular rate and rhythm without murmurs, gallops, or rubs. RESPIRATORY: Clear to auscultation. Breath sounds equal bilaterally. No wheezes, rales, or rhonchi. GASTROINTESTINAL: Abdomen soft, non-tender, nondistended. Bowel sounds are active. No hepato-splenomegaly, or palpable masses. No guarding. SKIN: warm, intact with no suspicious lesions or rash, good texture and turgor. NEURO: awake, alert, and oriented to person, place and time. There were no obvious focal neurologic abnormalities. Course Course Level of Care: Express Care Visit Vital Signs Vital signs: Vital Signs Temperature 97.5 F L 05/19/25 11:04 Pulse Rate 72 05/19/25 11:04 Respiratory Rate 18 05/19/25 11:04 Blood Pressure 154/89 H 05/19/25 11:04 Pulse Oximetry 98 05/19/25 11:04 Oxygen Delivery Room Air 05/19/25 11:04 Temperature 97.5 F L 05/19/25 11:04 Pulse Rate 72 05/19/25 11:04 Respiratory Rate 18 05/19/25 11:04 Blood Pressure 154/89 H 05/19/25 11:04 Pulse Oximetry 98 05/19/25 11:04 Oxygen Delivery Room Air 05/19/25 11:04 Reviewed Medical Decision Making MDM Narrative Medical decision making narrative: Take antibiotics as directed. May given ibuprofen and/or Tylenol as needed for pain and/or fever. Follow up with primary care provider in 7-10 days to have ear rechecked. -Ear drops as directed for 7-10 days until the pain and swelling are gone. -When administer drug into the affected ear; make sure to ly down with the affected ear facing upward, message the ear canal to help the drops reach the medial end of the canal, then remain in that position for at least 5 mintues. -Avoid using cotton tipped applicator for ears cleaning -Avoid exposing swimming or exposing the affected ear to water during the treatment period Take or alternate tylenol or ibuprofen every 4 - 6 hours if needed for pain. Follow up with primary care provider if condition is not improving in 7 days or sooner if there is new concern. Differential Diagnosis Differential Diagnosis: otitis media, otitis externa, cerumen impaction Vital Signs Vital Signs: Vital Signs Temperature 97.5 F L 05/19/25 11:04 Pulse Rate 72 05/19/25 11:04 Respiratory Rate 18 05/19/25 11:04 Blood Pressure 154/89 H 05/19/25 11:04 Pulse Oximetry 98 05/19/25 11:04 Oxygen Delivery Room Air 05/19/25 11:04 Temperature 97.5 F L 05/19/25 11:04 Pulse Rate 72 05/19/25 11:04 Respiratory Rate 18 05/19/25 11:04 Blood Pressure 154/89 H 05/19/25 11:04 Pulse Oximetry 98 05/19/25 11:04 Oxygen Delivery Room Air 05/19/25 11:04 Critical Care Time Critical Care Time Critical Care Time: No Discharge Plan Discharge Clinical Impression: Bilateral otitis externa, Acute left otitis media Patient Disposition: Home Condition: Stable Instructions: Antibiotic Form, Swimmer's Ear (ED), Ear Infection (ED) Additional Instructions: Take antibiotics as directed. May given ibuprofen and/or Tylenol as needed for pain and/or fever. Follow up with primary care provider in 7-10 days to have ear rechecked. -Ear drops as directed for 7-10 days until the pain and swelling are gone. -When administer drug into the affected ear; make sure to ly down with the affected ear facing upward, message the ear canal to help the drops reach the medial end of the canal, then remain in that position for at least 5 mintues. -Avoid using cotton tipped applicator for ears cleaning -Avoid exposing swimming or exposing the affected ear to water during the treatment period Take or alternate tylenol or ibuprofen every 4 - 6 hours if needed for pain. Follow up with primary care provider if condition is not improving in 7 days or sooner if there is new concern. Patient Language: Gabonese Prescriptions: New amoxicillin-pot clavulanate 875-125 mg tablet 1 tablet PO Q12H 10 Days Qty: 20 0RF ofloxacin 0.3 % drops 10 drp EACH EAR BID 14 Days Qty: 10 0RF No Action Mirena 20 mcg/24 hours (7 yrs) 52 mg Intrauterine Device 1 device INTRAUTERINE ONCE Rx Instructions: as a single dose ergocalciferol (vitamin D2) 1,250 mcg (50,000 unit) capsule Follow-up/Referrals: Barney Hughes MD [Primary Care Provider, Orthopedics] Time of Disposition: 11:13
[2025-05-19 11:04] VITALS: BP 154/89; PULSE 72; RESP 18; TEMP 36.4; O2SAT 98
--- OUTSIDE RECORDS SUMMARY | 2025-05-19 20:25 | XMS_ITS | Data Portability ---
Author Organization [facility] [place] Address [address] [place] [address] Assessment Encounter Date Assessment Date Assessment LastModified by Organization Details LastModified Time 06/17/2024 06/17/2024 Annual gynecological exam performed. Patient will come back in a year unless there are new symptoms. [email or web address] Not available 06/17/2024 11:27:37 Plan of Treatment Reminders Order Date Submit Date Provider Last Modified By Organization Details Last Modified Time Details Appointments None recorded. Lab hormone panel, serum or plasma 024 [facility] (Lab), [address], [place], [address], 4 03:26:19 vitamin D, 25-hydrox y, total, serum 024 [facility] (Lab), [address], [place], [address], 4 21:28:23 TSH, serum or plasma 024 [facility] (Lab), [address] [place], [address], 4 21:28:23 hormone panel, serum or plasma 024 024 [facility] (Lab), [address] [place], [address], 4 21:28:22 testoster one, total, serum 024 024 [facility] (Lab), [address], [place], [address], 4 21:28:23 testoster one, free, serum 024 024 [facility] (Lab), [address] [place], [address], 4 21:28:24 Referral None recorded. Procedures None recorded. Surgeries None recorded. Imaging None recorded. Medication Orders None recorded. Patient TargetsNo targets recorded. Patient InstructionsNo instructions recorded. Reason for Referral None Reported. Results Created Date Observation Date Name Description Value Unit Range Abnormal Flag Note LastModifiedBy Organization Detail LastModifiedTime 01/10/2001/09/2023 CBC W/DIF F WBC 7.4 10'3/ uL 3.6-10 .2 Not Available [facility] (Lab) [address], [place], [address], 01/10/2023 06:45:17 01/10/20 23 01/09/2023 CBC W/DIF F RBC 4.97 10'6/ uL (based on docume nted legal sex) 4.10-5 .30 Not Available [facility] (Lab) [address] [place], [address], 01/10/2023 06:45:17 01/10/20 23 01/09/2023 CBC W/DIF F HGB 14.7 g/dL (based on docume nted legal sex) 11.9-1 5.8 Not Available [facility] (Lab) [address] [place], [address], 01/10/2023 06:45:17 01/10/20 23 01/09/2023 CBC W/DIF F HCT 45.4 % (based on docume nted legal sex) 37.4-4 8.3 Not Available [facility] (Lab) [address] [place], [address], 01/10/2023 06:45:17 01/10/20 23 01/09/2023 CBC W/DIF F MCV 91.3 fL 82.0-9 9.0 Not Available [facility] (Lab) [address], [place], [address], 01/10/2023 06:45:17 01/10/20 23 01/09/2023 CBC W/DIF F MCH 29.6 pg 27.0-3 3.0 Not Available [facility] (Lab) [address], [place], [address], 01/10/2023 06:45:17 01/10/20 23 01/09/2023 CBC W/DIF F MCHC 32.4 g/dL 32.0-3 6.0 Not Available [facility] (Lab) [address], [place], [address], 01/10/2023 06:45:17 01/10/20 23 01/09/2023 CBC W/DIF F RDW 12.6 % 11.0-1 5.0 Not Available [facility] (Lab) [address], [place], [address], 01/10/2023 06:45:17 01/10/20 23 01/09/2023 CBC W/DIF F plt 278 10'3/ uL 150-45 0 Not Available [facility] (Lab) [address], [place], [address], 01/10/2023 06:45:17 01/10/20 23 01/09/2023 CBC W/DIF F MPV 10.5 fL 9.8-12 .7 Not Available [facility] (Lab) [address], [place], [address], 01/10/2023 06:45:17 01/10/20 23 01/09/2023 CBC W/DIF F NRBC's 0.0 % 0 Not Available [facility] (Lab) [address], [place], [address], 01/10/2023 06:45:17 01/10/20 23 01/09/2023 CBC W/DIF F absolute NRBCs 0.0 10'3/ uL 0 Not Available [facility] (Lab) [address] [facility], [place], [address], 01/10/2023 06:45:17 01/10/20 23 01/09/2023 CBC W/DIF F neutrophils 67.6 % 37.0-7 2.0 Not Available [facility] (Lab) [address] [facility], [place], [address], 01/10/2023 06:45:17 01/10/20 23 01/09/2023 CBC W/DIF F lymphocytes 21.3 % 16.0-4 8.0 Not Available [facility] (Lab) [address] [facility], [place], [address], 01/10/2023 06:45:17 01/10/20 23 01/09/2023 CBC W/DIF F monocytes 7.0 % 4.0-14 .0 Not Available [facility] (Lab) [address] [facility], [place], [address], 01/10/2023 06:45:17 01/10/20 23 01/09/2023 CBC W/DIF F eosinophils 3.0 % 0.0-9. 0 Not Available [facility] (Lab) [address] [facility], [place], [address], 01/10/2023 06:45:17 01/10/20 23 01/09/2023 CBC W/DIF F basophils 0.7 % 0.0-2. 0 Not Available [facility] (Lab) [address] [facility], [place], [address], 01/10/2023 06:45:17 01/10/20 23 01/09/2023 CBC W/DIF F immature granulocytes 0.4 % no define d refere nce range Not Available [facility] (Lab) [address] [facility], [place], [address], 01/10/2023 06:45:17 01/10/20 23 01/09/2023 CBC W/DIF F absolute neutrophils 5.0 10'3/ uL 1.1-6. 0 Not Available [facility] (Lab) [address] [facility], [place], [address], 01/10/2023 06:45:17 01/10/20 23 01/09/2023 CBC W/DIF F absolute lymphocytes 1.6 10'3/ uL 0.7-3. 4 Not Available [facility] (Lab) [address] [facility], [place], [address], 01/10/2023 06:45:17 01/10/20 23 01/09/2023 CBC W/DIF F absolute monocytes 0.5 10'3/ uL 0.3-1. 0 Not Available [facility] (Lab) [address] [facility], [place], [address], 01/10/2023 06:45:17 01/10/20 23 01/09/2023 CBC W/DIF F absolute eosinophils 0.2 10'3/ uL 0.0-0. 6 Not Available [facility] (Lab) [address] [facility], [place], [address], 01/10/2023 06:45:17 01/10/20 23 01/09/2023 CBC W/DIF F absolute basophils 0.1 10'3/ uL 0.0-0. 1 Not Available [facility] (Lab) [address] [facility], [place], [address], 01/10/2023 06:45:17 01/10/20 23 01/09/2023 CBC W/DIF F absolute immature granulocytes 0.0 10'3/ uL 0.00-0 .10 2022 5:21 AM: P indic ates parti al resul ts on a panel have been relea sed. Addit ional resul ts will follo w. 2022 5:22 AM: This resul t has been final verif ied. No addit ional or cabrera ed resul ts are expec ismael. Not Available [facility] (Lab) [address] [facility], [place], [address], 01/10/2023 06:45:17 01/10/20 23 01/09/2023 LIPID PANEL ,AMA (LDL- CALC) total cholesterol 205 mg/dL 0-199 high Not Available [facility] (Lab) [address] [place], [address], 01/10/2023 06:45:17 01/10/20 23 01/09/2023 LIPID PANEL ,AMA (LDL- CALC) triglyceride s 98 mg/dL 0.00-1 50.00 NCEP Refer ence Value s for Trigl yceri joao: Deysi l: <150 mg/dL Borde rline High: 150 - 199 mg/dL High: 200 - 499 mg/dL Very High: >/= 500 mg/dL Not Available [facility] (Lab) [address] [facility], [place], [address], 01/10/2023 06:45:17 01/10/20 23 01/09/2023 LIPID PANEL ,AMA (LDL- CALC) HDL cholesterol 54 mg/dL >40 Not Available [facility] (Lab) [address] [place], [address], 01/10/2023 06:45:17 01/10/2001/09/2023 LIPID PANEL ,AMA (LDL- CALC) LDL cholesterol 131 mg/dL 0-99 high Cutof f value s recom jim d by the Natio nal Pamela stero l Educa tion Progr am: BARRY ABLE: Pamela stero l <200 mg/dL LDL <100 mg/dL BORDE RLINE : Pamela stero l 200-2 39 mg/dL LDL 101-1 59 mg/dL HIGHE R RISK: Pamela stero l >240 mg/dL LDL >160 mg/dL , HDL <40 mg/dL Not Available [facility] (Lab) [address], [place], [address], 01/10/2023 06:45:17 01/10/2001/09/2023 LIPID PANEL ,AMA (LDL- CALC) non-HDL cholesterol 151 mg/dL no refere nce range A reaso nable goal for non-H DL pamela stero l is one that is 30 mg/dL highe r than the LDL pamela stero l goal. Not Available [facility] (Lab) [address], [place], [address], 01/10/2023 06:45:17 01/10/2001/09/2023 LIPID PANEL ,AMA (LDL- CALC) chol/HDL ratio 3.8 . 0.0-5. 0 On October 25, 2022, [facility] labor atori dwayne cabrera ed the equat ion for calcu latin g estim ated low-d ensit y lipop rotei n-cho leste rol (LDL- C) from the Fried aakash equat ion to the Imani n/Hop kins equat ion. This new equat ion is only valid for lipid panel s with trigl yceri joao < 400 mg/dL . Antoinei es steve brown ed that this new equat ion will impro ve the accur acy of LDL-C , espec ially in scena maria when LDL-C belkis ntrat ions are relat ively low (< 100 mg/dL ), trigl yceri joao are eleva ismael, or patie nt is non-f astin g. Refer ences : - Imani león, Edilberto Rodriguez, Clinton Handy , Court clarke, Benjamin Aponte, Benjamin dawn, Jose Antonio melvin , and Domingo Adams . 2013. Comp ariso n of a Novel Metho d vs the Fried aakash Equat ion for Estim ating Low-D ensit y Lipop rotei n Pamela stero l Level s from the Stand robbie Lipid Profi le. ARBEN: The Journ al of the Ameri can Medic al Assoc iatio n 310 (19): . - Madelin kay V, Aleida J, Lora kay A, Doroteo M, Vj e R, Horacio kay E, Babita melvin RS, Adams SR, Imani n SS. Fast ing Versu s Nonfa sting and Low-D ensit y Lipop rotei n Pamela stero l Accur acy. Circu marlys n. 2017Jul 04;137 (1):1 0-19. Not Available [facility] (Lab) [address] [facility], [place], [address], 01/10/2023 06:45:17 01/10/20 23 01/09/2023 CMP(C OMPRE HENSI VE METAB OLIC PANEL ) sodium 140 mmol/ L 133-14 6 Not Available [facility] (Lab) [address] [place], [address], 01/10/2023 06:45:18 01/10/20 23 01/09/2023 CMP(C OMPRE HENSI VE METAB OLIC PANEL ) potassium 3.7 mmol/ L 3.5-5. 1 Not Available [facility] (Lab) [address] [place], [address], 01/10/2023 06:45:18 01/10/20 23 01/09/2023 CMP(C OMPRE HENSI VE METAB OLIC PANEL ) chloride 105 mmol/ L 98-107 Not Available [facility] (Lab) [address] [place], [address], 01/10/2023 06:45:18 01/10/20 23 01/09/2023 CMP(C OMPRE HENSI VE METAB OLIC PANEL ) carbon dioxide 25 mmol/ L 21-31 Not Available [facility] (Lab) [address] [place], [address], 01/10/2023 06:45:18 01/10/20 23 01/09/2023 CMP(C OMPRE HENSI VE METAB OLIC PANEL ) anion gap 10 mmol/ L 4-13 Not Available [facility] (Lab) [address] [place] [facility] [place], [address], 01/10/2023 06:45:18 01/10/20 23 01/09/2023 CMP(C OMPRE HENSI VE METAB OLIC PANEL ) blood urea nitrogen 16 mg/dL 7-25 Not Available [facility] (Lab) [address] [facility], [place], [address], 01/10/2023 06:45:18 01/10/20 23 01/09/2023 CMP(C OMPRE HENSI VE METAB OLIC PANEL ) creatinine 0.73 mg/dL 0.60-1 .30 Not Available [facility] (Lab) [address] [facility], [place], [address], 01/10/2023 06:45:18 01/10/20 23 01/09/2023 CMP(C OMPRE HENSI VE METAB OLIC PANEL ) egfrcr (CKD-epi 2020) >90 mL/mi n/1.7 3_m2 >=60 Not Available [facility] (Lab) [address] [facility], [place], [address], 01/10/2023 06:45:18 01/10/20 23 01/09/2023 CMP(C OMPRE HENSI VE METAB OLIC PANEL ) calcium 9.1 mg/dL 8.3-10 .5 Not Available [facility] (Lab) [address] [facility], [place], [address], 01/10/2023 06:45:18 01/10/20 23 01/09/2023 CMP(C OMPRE HENSI VE METAB OLIC PANEL ) glucose 84 mg/dL 70-100 Not Available [facility] (Lab) [address] [facility], [place], [address], 01/10/2023 06:45:18 01/10/20 23 01/09/2023 CMP(C OMPRE HENSI VE METAB OLIC PANEL ) protein, total 7.0 g/dL 6.4-8. 3 Not Available [facility] (Lab) [address] [facility], [place], [address], 01/10/2023 06:45:18 01/10/20 23 01/09/2023 CMP(C OMPRE HENSI VE METAB OLIC PANEL ) albumin 4.5 g/dL 3.5-5. 0 Not Available [facility] (Lab) [address] [facility], [place], [address], 01/10/2023 06:45:18 01/10/20 23 01/09/2023 CMP(C OMPRE HENSI VE METAB OLIC PANEL ) ALT 17 units /L 9-43 Not Available [facility] (Lab) [address] [facility], [place], [address], 01/10/2023 06:45:18 01/10/20 23 01/09/2023 CMP(C OMPRE HENSI VE METAB OLIC PANEL ) alkaline phosphatase 88 units /L 34-104 Not Available [facility] (Lab) [address] [facility], [place], [address], 01/10/2023 06:45:18 01/10/20 23 01/09/2023 CMP(C OMPRE HENSI VE METAB OLIC PANEL ) AST 12 units /L 13-39 low Not Available [facility] (Lab) [address] [facility], [place], [address], 01/10/2023 06:45:18 01/10/20 23 01/09/2023 CMP(C OMPRE HENSI VE METAB OLIC PANEL ) bilirubin, total 0.6 mg/dL 0.2-1. 2 Not Available [facility] (Lab) [address] [facility], [place], [address], 01/10/2023 06:45:18 01/10/20 23 01/09/2023 TSH, REFLE X FREE T4 TSH 2.34 uIU/m L 0.30-5 .33 Not Available [facility] (Lab) [address] [place], [address], 01/10/2023 06:45:18 01/10/20 23 01/09/2023 VITAM IN D, 25-OH (TOTA L D2/D3 ) vitamin D, 25-hydroxy, total 20.8 NG/mL 30.0-1 00.0 low Sugge stive of Defic iency : <20 ng/mL Sugge stive of Insuf ficie ncy: 20-29 ng/mL Sugge stive of Suffi cienc y: 30-10 0 ng/mL Sugge stive of Toxic ity: >150 ng/mL Not Available [facility] (Lab) [address] [facility], [place], [address], 01/10/2023 06:45:19 01/10/20 23 01/09/2023 IMAGE GUIDE D PAP AND HPV REGAR DLESS image guided Pap, HPV regardless of Pap result SEE RESULT S BELOW CASE REPOR T: Cytol ogy Gynec ologi maryan Repor t Case: [id number] Autho tod Provi rachel: Marie Carreno MD Colle cted: 01/09 1511 Order ing Locat ion: [place] Patho logy Recei og: 01/10 0556 First Scree n: Strleonor z, Ubaldo am, CT Rescr een: Cayrn Bruno , CT Speci men: Scree amrit Pap - Image d, Cervi x STATE MENT OF ADEQU ACY: Satis facto ry for evalu ation Trans forma tion zone compo nent prese nt FINAL DIAGN OSIS: Negat gerardo for Intra epith elial Lesio n or Ashley perkins (NIL) . Shift in [place] sugge stive of bacte rial vagin osis. Elect myron gomez d by Caryn Bruno , CT on 2022 at 5:22 PM ----- ----- ----- ----- ----- ----- ----- ----- ----- ----- ----- ----- ----- ----- ----- ----- ----- ---- HPV RESUL TS: HPV mRNA E6/E7 : No HPV mRNA Detec ismael NOTE: This high risk HPV mRNA assay detec ts fourt een high- risk HPV types (16, 18, 31, 33, 35, 39, 45, 51, 52, 56, 58, 59, 66, 68) witho ut diffe renti ation . COMME NT: This speci men was revie wed by a Cytot echno logis t and/o r Patho logis t (as indic ated in this repor t) after evalu ation using the Thinp rep Imagi ng Syste m. CLINI MARYAN INFOR MATIO N: Menst rual Statu s: LMP (if appli cable ): Clini maryan Histo ry/Pr eviou s Pap: Type of Neopl price (if appli cable ): Signi fican t Clini maryan Findi ngs: Other Histo ry: Hormo joselin (if appli cable ): PAP EDUCA LARISA L NOTE: The Pap Test is a scree amrit test with an inher ent false negat gerardo rate. Liqui d-bas ed sampl ing may decre ase, but will not elimi doc, false negat gerardo resul ts. A negat gerardo resul t does not precl ude the prese nce and/o r devel opmen t of disea se, since the prese nce of abnor mal cells in the sampl e depen ds on the locat ion of the lesio n and sampl ing techn ique. Vega nued regul ar scree amrit is the best metho d of cance r preve ntion . If repor ismael cytol ogic findi ng do not corre late with physi maryan and/o r histo rical findi ngs, furth er inves tigat ion is recom jim d, as clini flory bishop nted. Not Available [facility] (Lab) [address], [place], [address], 01/10/2023 18:30:17 01/21/20 23 01/20/2023 CT/GC AND TRICH OMONA S VAGIN ELIZABETH (RRNA ), URINE chlamydia trachomatis, PCR Negati ve negati ve Not Available [facility] (Lab) [address] [facility], [place], [address], 01/21/2023 14:36:39 01/21/20 23 01/20/2023 CT/GC AND TRICH OMONA S VAGIN ELIZABETH (RRNA ), URINE neisseria gonorrhoeae, PCR Negati ve negati ve Not Available [facility] (Lab) [address] [facility], [place], [address], 01/21/2023 14:36:39 01/21/20 23 01/20/2023 CT/GC AND TRICH OMONA S VAGIN ELIZABETH (RRNA ), URINE trichomonas vaginalis ribosomal RNA (rrna) Negati ve negati ve Not Available [facility] (Lab) [address] [facility], [place], [address], 01/21/2023 14:36:39 01/21/20 23 01/20/2023 pregn nina test, urine HCG negati ve Not Available [address], [place], [address], 01/20/2023 11:21:19 10/20/19 24 10/20/2023 FSH, LH, ESTRA DIOL estradiol 494.0 pg/mL This assay was perfo rmed using [employer] ratio n reage nts and test kits. Value s obtai wilfred with other assay metho ds or kits canno t be used inter cabrera eably . Femal e Estra diol Range s: Folli cular phasE 12.4- 233 pg/mL Ovula tion phasE 41.0- 398 pg/mL Lutea l phasE 22.3- 341 pg/mL Postm enopa usal <5-13 8 pg/mL Healt hy Pregn ant Women 1st Trime ster 154-3 243 pg/mL 2nd Trime ster 1561- 17635 pg/mL 3rd Trime ster 8525- >3000 0 pg/mL Not Available [facility] (Lab) [address] [facility], [place], [address], 10/25/2023 21:28:22 10/20/19 24 10/20/2023 FSH, LH, ESTRA DIOL FSH 3.3 mIU/m L This assay was perfo rmed using [employer] reage nts and test kits. Value s obtai wilfred with other assay metho ds or kits canno t be used inter [facility] [employer] [employer] [facility] . Femal es Folli cular : 3.5-1 2.5 mIU/m L Ovula tion: 4.7-2 1.5 mIU/m L Lutea l: 1.7-7 .7 mIU/m L Postm enopa use: 25.8- 134.8 mIU/m L Not Available [facility] (Lab) [address], [place], [address], 10/25/2023 21:28:22 10/20/19 24 10/20/2023 FSH, LH, ESTRA DIOL LH 4.7 mIU/m L This assay was perfo rmed using [employer] n reage nts and test kits. Value s obtai wilfred with other assay metho ds or kits canno t be used inter [facility] [employer] [facility] . Femal es Mid-F ollic ular: 2.4-1 2.6 mIU/m L Mid-C ycle: 14.0- 95.6 mIU/m L Mid-L uteal : 1.0-1 1.4 mIU/m L Postm enopa use: 7.7-5 8.5 mIU/m L Not Available [facility] (Lab) [address], [place], [address], 10/25/2023 21:28:22 10/20/19 24 10/20/2023 TESTO STERO NE, TOTAL testosterone , total 35 NG/dL 0-100 Not Available [facility] (Lab) [address], [place], [address], 10/25/2023 21:28:23 10/20/19 24 10/20/2023 TSH, REFLE X FREE T4 TSH 2.29 uIU/m L 0.30-5 .33 Not Available [facility] (Lab) [address] [facility], [place], [address], 10/25/2023 21:28:23 10/20/19 24 10/20/2023 VITAM IN D, 25-OH (TOTA L D2/D3 ) vitamin D, 25-hydroxy, total 18.2 NG/mL 30.0-1 00.0 low Sugge stive of Defic iency : <20 ng/mL Sugge stive of Insuf ficie ncy: 20-29 ng/mL Sugge stive of Suffi cienc y: 30-10 0 ng/mL Sugge stive of Toxic ity: >150 ng/mL Not Available [facility] (Lab) [address] [facility], [place], [address], 10/25/2023 21:28:23 10/20/19 24 10/20/2023 TESTO STERO NE, FREE testosterone free 1.8 pg/mL 0.2-5. 0 The belkis ntrat ion of free testo stero ne is deriv ed from a jenny jeong model using total testo stero ne by LCMSM S, sex hormo ne [place] ng globu linda and album in. This test was devel oped and its neema tical perfo rmanc e vitaly cteri stics have been deter mined by [facility] [place], [place]. It has not been clear ed or appro og by the U.S. Food and Drug Admin istra tion. This assay has been valid ated pursu ant to the CLIA regul ation s and is used for clini maryan purpo ses. Perfo rming Organ izati on Infor matio n: Site ID: [id number] Name: [facility] Addre ss: [id number] [place], [place] Direc tor: Vickie Garnica MD PhD Not Available [facility] (Lab) [address] [facility], [place], [address], 10/25/2023 21:28:24 11/08/19 24 11/08/2023 FSH, LH, ESTRA DIOL estradiol 67.7 pg/mL This assay was perfo rmed using [employer] ratio n reage nts and test kits. Value s obtai wilfred with other assay metho ds or kits canno t be used inter [facility] . Femal e Estra diol Range s: Folli cular phasE 12.4- 233 pg/mL Ovula tion phasE 41.0- 398 pg/mL Lutea l phasE 22.3- 341 pg/mL Postm enopa usal <5-13 8 pg/mL Healt hy Pregn ant Women 1st Trime ster 154-3 243 pg/mL 2nd Trime ster 1561- 45055 pg/mL 3rd Trime ster 8525- >3000 0 pg/mL Not Available [facility] (Lab) [address] [facility], [place], [address], 11/09/2023 03:26:19 11/08/19 24 11/08/2023 FSH, LH, ESTRA DIOL FSH 5.9 mIU/m L This assay was perfo rmed using [employer] ratio n reage nts and test kits. Value s obtai wilfred with other assay metho ds or kits canno t be used inter [facility] . Femal es Folli cular : 3.5-1 2.5 mIU/m L Ovula tion: 4.7-2 1.5 mIU/m L Lutea l: 1.7-7 .7 mIU/m L Postm enopa use: 25.8- 134.8 mIU/m L Not Available [facility] (Lab) [address] [facility], [place], [address], 11/09/2023 03:26:19 11/08/19 24 11/08/2023 FSH, LH, ESTRA DIOL LH 1.7 mIU/m L This assay was perfo rmed using [employer] n reage nts and test kits. Value s obtai wilfred with other assay metho ds or kits canno t be used inter [facility] . Femal es Mid-F ollic ular: 2.4-1 2.6 mIU/m L Mid-C ycle: 14.0- 95.6 mIU/m L Mid-L uteal : 1.0-1 1.4 mIU/m L Postm enopa use: 7.7-5 8.5 mIU/m L Not Available [facility] (Lab) [address], [place], [address], 11/09/2023 03:26:19 06/17/20 24 06/17/2024 IMAGE GUIDE D PAP AND HPV REGAR DLESS image guided Pap, HPV regardless of Pap result SEE RESULT S BELOW CASE REPOR T: Cytol ogy Gynec ologi maryan Repor t Case: [id number] Autho tod g Provi rachel: Marie Carreno MD Colle cted: 06/17 1323 Order ing Locat ion: [place] Patho logy Recei og: 06/18 0155 First Scree n: Karis Adams, CT Rescr een: Angélica wilkins, Ubaldo james, CT Speci men: Debbie marcus Pap - Image d, Cervi x STATE MENT OF ADEQU ACY: Satis facto ry for evalu ation Trans forma tion zone compo nent absen t The absen ce of an endoc ervic al compo nent was confi rmed by an addit ional scree ner. ----- ----- ----- ----- ----- ----- ----- ----- ----- ----- ----- ----- ----- ----- ----- ----- ----- ---- FINAL DIAGN OSIS: Negat gerardo for Intra epith elial Paulino león or Ashley perkins (NIL) . Jacob aguirre by Ubaldo wilkins, CT on 06/27 at 1154 RAISE MINER ----- ----- ----- ----- ----- ----- ----- ----- ----- ----- ----- ----- ----- ----- ----- ----- ----- ---- HPV RESUL TS: HPV mRNA E6/E7 : No HPV mRNA Detec ismael NOTE: This high risk HPV mRNA assay detec ts fourt een high- risk HPV types (16, 18, 31, 33, 35, 39, 45, 51, 52, 56, 58, 59, 66, 68) witho ut diffe renti ation . COMME NT: This speci men was revie wed by a Cytot echno logis t and/o r Patho logis t (as indic ated in this repor t) after evalu ation using the Thinp rep Imagi ng Syste m. CLINI MARYAN INFOR MATIO N: Menst rual Statu s: LMP (if appli cable ): Clini maryan Histo ry/Pr eviou s Pap: Type of Neopl price (if appli cable ): Signi fican t Clini [facility]an Findi ngs: Other Histo ry: Hormo joselin (if appli cable ): PAP EDUCA LARISA L NOTE: The Pap Test is a scree amrit test with an inher ent false negat gerardo rate. Liqui d-bas ed sampl ing may decre ase, but will not elimi doc, false negat gerardo resul ts. A negat gerarod resul t does not precl ude the prese nce and/o r devel opmen t of disea se, since the prese nce of abnor mal cells in the sampl e depen ds on the locat ion of the lesio n and sampl ing techn ique. Vega nued regul ar scree amrit is the best metho d of cance r preve ntion . If repor ismael cytol ogic findi ng do not corre late with physi maryan and/o r histo rical findi ngs, furth er inves tigat ion is recom jim d, as clini flory bishop nted. Not Available [facility] (Lab) [address], [place], [address], 06/27/2024 12:59:01 08/0802/06/2023 MAMMO , diagn ostic , bilat eral No observ ation record ed. [email or web address] [facility] [address], [place], [address], 03/20/2023 11:01:37 Result Notes None recorded. Problems Name Problem SNOMED Code Status Onset Date Resolution Date Notes Provider Name and Address Organization Details Recorded Time Adult health examinat ion Completed 201302/15/2021 ROUTINE MEDICAL EXAM;Rec orded Elsewher e: No Locat ion: [facility] S ource: [facility] [employer] [employer] carlos: N Practi ce ID: [id number] Riaz lable Time: 08:30:00 AM [facility] [facility] 1 10:14:41 Obesity [id number] Completed 201302/15/2021 Obesity, unspecif ied;Prac genna ID: 0001 Meka Webster [facility] 1 10:14:10 Speciali zed medical examinat ion Completed 201302/15/2021 Routine gynecolo gical examinat ion;Prac genna ID: 0001 Meka Webster [facility] 1 10:13:45 Screenin g for malignan t neoplasm of cervix Completed 201302/15/2021 Pap Smear;Pr actice ID: 0001 Meka Webster [facility] 1 10:13:59 Cyst of ovary [id number] Active 2014 Other and unspecif ied ovarian cyst;Rec orded Elsewher e: No Locat ion: [facility] S ource: [employer] carlos: N Practi ce ID: 0001 Riaz lable Time: 05:00:00 PM Not Available [facility] 0 18:52:07 Irregula r periods [id number] Completed 201402/15/2021 Irregula r menstrua l cycle;Pr actice ID: 0001 Meka dang, [facility] 10:14:18 Insertio n of intraute rine contrace ptive device Completed 201402/15/2021 INSERTIO N OF IUD;Prac genna ID: 0001 Meka dang [facility] 10:14:25 Uses IUD (intraut erine device) contrace ption [id number] Completed 201402/15/2021 Surveill ance of intraute rine contrace ptive device;P ractice ID: 0001 Meka dang [facility] 10:14:14 Female genital organ symptoms [id number] Completed 201402/15/2021 Pelvic Pain;Pra ctice ID: 0001 Meka dang [facility] 10:14:33 [employer] Inspector al complica tion of intraute rine contrace ptive device [id number] Completed 201402/15/2021 [employer] Inspector al complica tion due to intraute rine contrace ptive device;P ractice ID: 0001 Meka dang [facility] 10:14:22 Acute vaginiti s [id number] Completed 201702/15/2021 Vaginiti s;Record ed Elsewher e: No Locat ion: Judith paez [facility] S ource: [employer] carlos: N Practi ce ID: 0001 Riaz lable Time: 01:15:00 PM Meka dang [facility] 10:12:[address] Concept Completed 201702/15/2021 Encntr for manager compensation exam (general ) (routine ) w/o abn findings ;Practic e ID: 0001 Meka dang [facility] 10:13:[address] Concept Completed 201702/15/2021 Encntr for general adult medical exam w/o abnormal findings ;Recorde d Elsewher e: No Locat ion: [facility] S ource: [employer] carlos: N Practi ce ID: 0001 Riaz lable Time: 01:15:00 PM Meka dang [facility] 1 10:13:55 Abnormal uterine bleeding [id number] 100 Active 2017 Other specifie d abnormal uterine and vaginal bleeding ;Recorde d Elsewher e: No Locat ion: [facility] S ource: [facility] [employer] carlos: N Practi ce ID: 0001 Riaz lable Time: 02:30:00 PM Not Available [facility] 0 18:52:07 Pregnanc y test negative [id number] Completed 201702/15/2021 Encounte r for pregnanc y test, result negative ;Recorde d Elsewher e: No Locat ion: [facility] S ource: [facility] [employer] carlos: N Practi ce ID: 0001 Riaz lable Time: 10:30:00 AM Meka dang [facility] 1 10:14:08 Finding of pattern of menstrua l cycle Completed 201702/15/2021 Excessiv e and frequent menstrua tion with irregula r cycle;Pr actice ID: 0001 Meka dang [facility] 1 10:14:28 Carbuncl e [id number] Completed 201702/15/2021 Carbuncl e, unspecif ied;Prac genna ID: 0001 Meka dang [facility] 1 10:14:39 Contrace ption care manageme nt Completed 201702/15/2021 Encounte r for contrace ptive manageme nt, unspecif ied;Wade rded Elsewher e: No Locat ion: [facility] S ource: [facility] carlos: N Practi ce ID: 0001 Riaz lable Time: 02:15:00 PM Meka dang [facility] 1 10:14:36 Bleeding Completed 201802/15/2021 Abnormal uterine and vaginal bleeding , unspecif ied;Wade rded Elsewher e: No Locat ion: [facility] S ource: [employer] carlos: N Practi ce ID: 0001 Riaz lable Time: 11:00:00 AM Meka dang [facility] 1 10:14:31 Removal of intraute rine device Completed 201802/15/2021 Encounte r for removal of intraute rine contrace ptive device;P ractice ID: 0001 Meka dang [facility] 10:14:05 Replacem ent of intraute rine contrace ptive device Completed 201802/15/2021 REMOVE/I NSERT IUD;Awde rded Elsewher e: No Locat ion: [facility] S ource: [employer] carlos: N Practi ce ID: 0001 Riaz lable Time: 08:30:00 AM Meka dang [facility] 10:14:03 Problem Notes None recorded. Procedures Surgical History Date Name Laterality Status Provider Name and Address Organization Details Recorded Time 023 Date of Last Mammogram completed Savannah Gray [facility] 06/17/2024 11:30:59 023 IUD Replacement completed Chai Carreno MD [address], [place], [address], [facility] 01/20/2023 10:34:11 023 Date of Last Pap Smear completed [facility] 01/20/2023 09:57:50 023 procedure on finger completed [facility] 01/09/2023 12:08:00 Tonsillectomy completed [facility] 02/15/2021 10:11:29 Cholecystectomy completed [facility] 02/15/2021 10:11:29 Endometrial Biopsy completed [facility] 02/15/2021 10:11:29 Dilation and Curettage completed [facility] 02/15/2021 10:11:29 Orthopedic Surgery completed [facility] 02/15/2021 10:11:29 Imaging Results None recorded. Procedure Notes None recorded. Medical Equipment None Reported. Allergies Allergen ID Allergen Name Allergen Category Reaction Reaction Severity Criticality Documentation Date Start Date Code Code System Note Provider Name and Address Organization Details Recorded Time 85439 zolmitrip [facility] anaphylax is Not available high 06/19/2020 22337 5 [facility] 12:03:20 Medications Name Sig Start Date Stop Date Status Note LastModified by Organization Details LastModified Time cyclobenz aprine 10 mg tablet TAKE 1 TABLET BY MOUTH THREE TIMES DAILY NEEDED FOR MUSCLE SPASM 01/09 completed Not Available Not Available Not Available Mirena 21 mcg/24 hr (up to 8 years) 52 mg intrauter ine device 2018 active Prescrib ed Elsewher e: Yes Loca tion: Judith [facility] M odify By: jamison aragon DateTime : 08/17/19 19 10:30:00 AM Not Available Not Available Not Available acetamino phen 325 mg tablet 01/09 completed Not Available Not Available Not Available prednison e 10 mg tablet 06/17 completed Not Available Not Available Not Available naproxen 375 mg tablet TAKE 1 TABLET BY MOUTH TWICE DAILY 01/09 completed Not Available Not Available Not Available azithromy virginie 250 mg tablet 01/09 completed Not Available Not Available Not Available fluconazo le 150 mg tablet TAKE 1 TABLET BY MOUTH 1 TIME. MAY REPEAT 1 TABLET IN 3 DAYS NEEDED 06/17 completed Not Available Not Available Not Available hydrocodo ne 5 mg-acetam inophen 325 mg tablet TAKE 1 TABLET BY MOUTH EVERY 6 HOURS NEEDED FOR PAIN 01/09 completed Not Available Not Available Not Available meloxicam 15 mg tablet TAKE 1 TABLET BY MOUTH DAILY active Not Available Not Available No t Available prednison e 20 mg tablet TAKE 2 TABLETS BY MOUTH DAILY FOR 3 DAYS THEN TAKE 1 TABLET BY MOUTH DAILY FOR 3 DAYS 10/19 completed Not Available Not Available Not Available Zoloft 20 mg/mL oral concentra te 03/07 completed Prescrib ed Elsewher e: Yes [facility] By: amalia austinunter DateTime : 05/26/20 14 08:30:00 AM Not Available Not Available Not Available metronida zole 500 mg tablet TAKE 1 TABLET BY MOUTH TWICE DAILY FOR 7 DAYS 01/09 completed Not Available Not Available Not Available ciproflox acin 500 mg tablet 01/09 completed Not Available Not Available Not Available sulfameth oxazole 800 mg-trimet hoprim 160 mg tablet TAKE 1 TABLET BY MOUTH TWICE DAILY FOR 5 DAYS DIRECTED 06/17 completed Not Available Not Available Not Available triamcino lone acetonide 0.1 % topical cream APPLY TOPICALL Y TO THE AFFECTED AREA TWICE DAILY FOR 7 DAYS 06/17 completed Not Available Not Available Not Available meloxicam 7.5 mg tablet TAKE 1 TABLET BY MOUTH EVERY DAY FOR 21 DAYS 11/06 completed Not Available Not Available Not Available potassium 99 mg tablet 02/15 completed Prescrib ed Elsewher e: Yes [facility] By: jamison austinunter DateTime : 06/22/20 18 02:15:00 PM Not Available Not Available Not Available Metrogel Vaginal 0.75 % (37.5 mg/5 gram) insert 1 applicat orful by vaginal route for 5 nights at bedtime 06/22 completed Prescrib ed Elsewher e: No Locat ion: Judith [facility] odify By: amtyler Paez ncounter DateTime : 05/17/20 18 10:44:23 AM Not Available Not Available Not Available estradiol 1 mg tablet take 1 tablet by oral route every day 06/29 completed Prescrib ed Elsewher e: No [facility] By: mary rbiggs DateTime : 06/22/20 18 02:15:00 PM Not Available Not Available Not Available Depo-Prov era 150 mg/mL intramusc ular suspensio n inject 1 millilit er by intramus cular route every 3 months 08/17 completed Prescrib ed Elsewher e: No Locat ion: [facility] odify By: jamison aragon DateTime : 04/27/20 18 10:30:00 AM Not Available Not Available Not Available Klonopin 0.5 mg tablet take 1 tablet by oral route 3 times every day 06/22 completed Prescrib ed Elsewher e: Yes [facility] By: jamison aragon DateTime : 05/26/20 14 08:30:00 AM Not Available Not Available Not Available cephalexi n 500 mg capsule TAKE 1 CAPSULE BY MOUTH EVERY 6 HOURS FOR 5 DAYS 01/09 completed Not Available Not Available Not Available losartan 25 mg tablet TAKE 1 TABLET BY MOUTH DAILY active Not Available Not Available No t Available hydrochlo rothiazid e 12.5 mg capsule TAKE ONE CAPSULE BY MOUTH DAILY 06/17 completed Not Available Not Available Not Available mupirocin 2 % topical ointment APPLY TO ARMS AND CHIN THREE TIMES DAILY FOR 5 DAYS 06/17 completed Not Available Not Available Not Available ergocalci ferol (vitamin D2) 1,250 mcg (50,000 unit) capsule TAKE 1 CAPSULE BY MOUTH EVERY WEEK 10/16 completed Not Available Not Available Not Available ibuprofen 600 mg tablet TAKE 1 TABLET BY MOUTH EVERY 6 HOURS NEEDED 01/09 completed Not Available Not Available Not Available albuterol sulfate HFA 90 mcg/actua tion aerosol inhaler 06/17 completed Not Available Not Available Not Available Mifeprex 200 mg tablet take 1 tablet by oral route once 06/29 completed Prescrib ed Elsewher e: No Locat ion: [facility] odify By: mary briggs DateTime : 06/28/20 18 02:00:00 PM Not Available Not Available Not Available amoxicill in 875 mg-potass ium clavulana te 125 mg tablet TAKE 1 TABLET BY MOUTH EVERY 12 HOURS 06/17 completed Not Available Not Available Not Available oxycodone 5 mg tablet TAKE 1 TABLET BY MOUTH EVERY 8 HOURS NEEDED FOR PAIN 06/17 completed Not Available Not Available Not Available cyclobenz aprine 5 mg tablet TAKE 1 TABLET BY MOUTH THREE TIMES DAILY NEEDED 06/17 completed Not Available Not Available Not Available Zyrtec 10/16 completed Not Available Not Available Not Available tranexami c acid 650 mg tablet take 2 tablet by oral route 3 times every day 08/17 completed Prescrib ed Elsewher e: No Locat ion: Judith paez [facility] odify By: jamison aragon DateTime : 06/29/20 18 08:25:49 AM Not Available Not Available Not Available Lo Loestrin Fe 1 mg-10 mcg (24)/10 mcg (2) tablet take 1 tablet by oral route every day 03/07 completed Prescrib ed Elsewher e: No Locat ion: Judith paez [facility] odify By: amalia aragon DateTime : 06/09/20 14 04:15:00 PM Not Available Not Available Not Available Vicodin 5 mg-300 mg tablet take 1 tablet by oral route every 4 - 6 hours as needed for pain 03/07 completed Prescrib ed Elsewher e: Yes Loca tion: Judith paez [facility] odify By: amalia aragon DateTime : 05/26/20 14 08:30:00 AM Not Available Not Available Not Available Gynazole- 1 2 % vaginal cream insert 1 applicat orful by vaginal route once 06/22 completed Prescrib ed Elsewher e: No [facility] By: jamison aragon DateTime : 05/10/20 18 11:30:00 AM Not Available Not Available Not Available ID NOW COVID-19 Test Kit TEST DIRECTED TODAY 10/16 completed Not Available Not Available Not Available Vitals Date Recorded Body height Body mass index (BMI) Body weight Systolic And Diastolic Provider Name and Address Organization Details Last Updated DateTime 10/20/2023 165.1 cm 45.4 kg/m2 144700.72 g 134/82 mm[Hg] [facility] 10/20/2023 12:40:19 Date Recorded Body height Body mass index (BMI) Body weight Systolic And Diastolic Provider Name and Address Organization Details Last Updated DateTime 11/08/2023 165.1 cm 46.1 kg/m2 381298.09 g 129/85 mm[Hg] [facility] 11/08/2023 09:28:58 Date Recorded Body height Body mass index (BMI) Body weight Systolic And Diastolic Provider Name and Address Organization Details Last Updated DateTime 01/20/2023 165.1 cm 44.8 kg/m2 253712.35 g 124/87 mm[Hg] [facility] 01/20/2023 09:57:16 Date Recorded Body height Body mass index (BMI) Body weight Systolic And Diastolic Provider Name and Address Organization Details Last Updated DateTime 02/20/2023 165.1 cm 45.3 kg/m2 670400.12 g 139/88 mm[Hg] [facility] 02/20/2023 09:57:44 Date Recorded Body height Body mass index (BMI) Body weight Systolic And Diastolic Provider Name and Address Organization Details Last Updated DateTime 06/17/2024 165.1 cm 45.8 kg/m2 905261.9 g 126/87 mm[Hg] Savannah Gray [facility] 06/17/2024 11:28:22 Social History Question Answer Notes LastModified by Organizat ion Details LastModified Time Do You Have An Advance Directive? No Information n ot available 02/15/2021 How Many Years Have You Consumed Alcohol? 10 Information not available 02/15/2021 Are You Blind Or Do You Have Difficulty Seeing? No Information n ot available 02/15/2021 What Is Your Level Of Caffeine Consumption? Occasional Information not available 02/15/2021 How Much Tobacco Do You Chew? None Information not available 02/15/2021 In The 14 Days Before Symptom Onset, Have You Had Close Contact With A Laboratory-confirm ed COVID-19 While That Case Was Ill? No Information n ot available 02/15/2021 In The 14 Days Before Symptom Onset, Have You Had Close Contact With A Person Who Is Under Investigation For COVID-19 While That Person Was Ill? No Information not available 02/15/2021 Have You Been To An Area Known To Be High Risk For COVID-19? No Information not available 02/15/2021 Are You Deaf Or Do You Have Serious Difficulty Hearing? No Information not available 02/15/2021 What Type Of Diet Are You Following? REGULAR Information n ot available 02/15/2021 What Is The Highest Grade Or Level Of School You Have Completed Or The Highest Degree You Have Received? [id number] Information not available 01/09/2023 Are There Any Guns Present In Your Home? No Information not available 02/15/2021 Do You Use Protection During Sex? No Information not available 02/15/2021 Do You Use Your Seat Belt Or Car Seat Routinely? Yes Information not available 02/15/2021 Do You Have Smoke And Carbon Monoxide Detectors In Your Home? Yes Information not available 02/15/2021 How Much Tobacco Do You Smoke? No Information not available 02/15/2021 Do You Use Sunscreen Routinely? Yes Information not available 02/15/2021 Have You Used IV Drugs? No Information not available 02/15/2021 Sex: Unknown Functional Status Question Answer Note LastModified by Organizat ion Details LastModified Time Do you use any illicit or recreational drugs? No Information not available 02/15/2021 What is your level of alcohol consumption? Occasional Information not available 02/15/2021 Are you able to walk independently without assistance or assistive devices? YESWOREST Information not available 02/15/2021 What is your occupation? [employer] Information not available 02/15/2021 What is your exercise level? Moderate Information not available 02/15/2021 Mental Status Question Answer Note LastModified by Organization D etails LastModified Time Do you feel stressed (tense, restless, nervous, or anxious, or unable to sleep at night)? [id number] Information not available 02/15/2021 Family History Relationship Description Onset Age of this Age Resolved Age Notes LastModified by Organization Details LastModified Time Maternal Uncle Diabetes mellitus Not available 2020 10:11:13 Maternal Uncle Myocardial infarction Not available 02/15 10:11:14 Maternal Uncle Heart disease Not available 2020 10:11:14 Maternal Grandmother Osteoporosis Not available 02/15/2021 10:11:14 Maternal Grandmother Diabetes mellitus Not available 2020 10:11:14 Maternal Grandmother Hypertensive disorder Not available 2020 17:19:27 Maternal Grandmother Cyst of ovary [email or web address] Not available 2023 10:57:33 Mother Anemia Not available 02/15/2021 10:11:14 Mother Diabetes mellitus Not available 2020 10:11:14 Mother Hypertensive disorder Not available 2020 17:19:26 Father Anxiety disorder Not available 2020 10:11:14 Father Hypertensive disorder Not available 2020 17:19:26 Maternal Grandfather Myocardial infarction Not available 02/15 10:11:14 Maternal Grandfather Diabetes mellitus Not available 2020 10:11:14 Maternal Grandfather Heart disease Not available 2020 10:11:14 Maternal Grandfather Malignant neoplasm of kidney [email or web address] Not available 2023 10:57:33 Maternal Grandfather Hypertensive disorder Not available 2020 17:19:27 Maternal Grandfather Congenital heart disease [email or web address] Not available 2023 10:57:33 Paternal Uncle Congenital heart disease [email or web address] Not available 2023 10:57:33 Medical History Condition Response Urinary Tract Infection Y Hypertension Y Gynecological History Statement/Question Response Abnormal Pap N Date of Last Mammogram 02/06/2023 Date of LMP N Was last menstrual period normal N STIs/STDs N HPV Vaccine N Duration of Flow (days) 7 Current Control Method IUD Date of control 03/12/2018 Are cycles usually normal Y Sexually Active? Y IUD Menses Monthly N Age of first menstrual cycle 15 Date of Last Pap Smear 01/09/2023 Sexual Problems? N LMP Unknown N Obstetrics History GPAL:G 0 P 0 0 0 0 Past Encounters Encounter ID Performer Location Encounter Start Date Encounter Closed Date Diagnosis/Indication Diagnosis SNOMED-CT Code Diagnosis ICD10 Code Diagnosis IMO Codes Diagnosis Note [id number] Chai Carreno MD [place] [address],[facility] [place] [address] 02/15/2021 10:01:19 02/15/2021 10:51:39 Gynecologic examination 76497903 Z01.419 This patient is here for her annual exam. A thorough history was taken. A physical exam was performed. Age appropriat e routine health screening was ordered, performed, and discussed. Recommende d testing was ordered. She was asked to follow up in one year. She will be informed of any test results. Mammogram - done Cholestero l - ordered Pap - today [id number] Chai Carreno MD [place] [address] [address] 12/07/2021 12:01:56 12/07/2021 14:08:36 Bacterial vaginosis 056668728 N76.0 Patient is 41-year-ol d female who reports foul-smell ing vaginal discharge. She denies any pruritus. She denies any white discharge. We will treat for BV. She has been treated with oral metronidaz ole in the past. Her vulva and distal vagina appear normal. She has numerous epidermal cysts at the labia majora. Will follow-up on swab. [id number] Chai Carreno MD [place] [address],[place] [address] 01/09/2023 11:51:09 01/09/2023 12:32:43 Gynecologic examination 42412361 Z01.419 Z11.51 This patient is here for her annual exam. A thorough history was taken. A physical exam was performed. Age appropriat e routine health screening was ordered, performed, and discussed. Recommende d testing was ordered. She was asked to follow up in one year. She will be informed of any test results. Mammogram - done Cholestero l - ordered Pap - today Mass of left breast 1224 749379 0045383 N63.20 Abnormal v aginal bleeding 710372443 N93.9 [id number] Chai Carreno MD [place] [address],[place] [address] 01/20/2023 09:45:43 01/20/2023 10:38:45 Contraception care management 212557223 Z30.9 the IUD was removed and IUD was reinserted . She tolerated well. No complaints , no problems [id number] Chai Carreno MD [place] [address],[place] [address] 02/20/2023 09:49:01 02/21/2023 10:35:06 Postoperative care 791296166 Z48.89 This patient is a 43-year-ol d who presents for IUD check. She has no complaints . She was examined with a speculum. The cervix appears normal, the IUD string appears normally placed, the IUD was not visible. She will follow up as needed. [id number] SCOT Richard [place] [address],[place] [address] 10/20/2023 12:33:51 10/20/2023 14:29:04 Acne 16853899 L70.9 Weight gain 7718124 R63. 5 Vaginal dryness 63319423 N89.8 Detailed health hx updated and reviewed todaydiscu ssed symptomsla bs ordereddis cussed topical/OT C acne solutions, recommende d dermatolog ist consultenc ouraged regular exercise, healthy lifestylev eg based moisturize r routine discussed, discussed vaginal estrogen creamobtai n labs and return to review/dis cuss management options Time spent in visit is a total of 22 mins with at least 50% of visit consisting of counseling and review of plan of care. Adult heal th examination 166397145 Z00.00 [id number] SCOT Richard [place] [address] [address] 11/08/2023 09:23:56 11/08/2023 10:20:12 Laboratory test result abnormal 330638601 R89.9 Acne 67271459 L70.9 Contracept ion care management 058386694 Z30.9 Reviewed updated labscontin ue vitamin D3 dailyderm consult for acnevulvar veg based moisturize r routine reviewedqu estions answeredre peat estradiol level todayRTC for WWE or sooner if needed Time spent in visit is a total of 18 mins with at least 50% of visit consisting of counseling and review of plan of care. [id number] Chai Carreno MD [place] [address] [address] 06/17/2024 10:55:58 06/17/2024 12:10:03 Gynecologic examination 51304117 Z01.419 Z11.51 This patient is here for her annual exam. A thorough history was taken. A physical exam was performed. Age appropriat e routine health screening was ordered, performed, and discussed. Recommende d testing was ordered. She was asked to follow up in one year. She will be informed of any test results. Mammogram - done Cholestero l - ordered Pap - today Health Concerns Section Related Observation LastModified by Organization Detai ls LastModified Time None Recorded Concern Status LastModified by Organization Details LastModified Time None Recorded Advance Directives Directive N: Payers Insurance Date Sequence Insurance Name Policy Number Policy Stack Covered Member ID Stack Member ID Guarantor Name 06/17/2024 1 [place] [employer] ([facility]) [id number] Manisha Terrell Groves [id number] Manisha Groves 06/17/2024 2 [facility] () [id number] Manisha Germain [id number] Manisha Groves 06/17/2024 2 () October Terrell Groves [id number] Manisha Groves Notes Date Note Type Note Provider Name and Address Organization Details Recorded Time 01/21/20 23 text/ht ml Patient presents for IUD removal and insertion. Chai Carreno MD [address], [place], [address], [facility] 01/20/2023 10:36:32 02/21/20 23 text/ht ml This patient is a 43-year-old who presents for IUD check. She has no complaints. She was examined with a speculum. The cervix appears normal, the IUD string appears normally placed, the IUD was not visible. She will follow up as needed. Chai Carreno MD [address] [address], [place], [address], [facility] 02/20/2023 20:06:28 10/20/19 24 text/ht ml 43yopresents to discuss hormone testingshe has noticed worsening acne over the past 1 yearweight gain despite efforts to loosemild hot flashesvaginal dryness mirena IUD for BC : removed and replaced 01/20/2023SA with steady male partnerneg n/v/fneg pelvic painneg flu-like symptoms UTD with PCPlast labs 04/2023 SCOT Richard [address], [place], [address], [facility] 10/20/2023 13:28:47 11/08/19 24 text/ht ml 43yopresents for f/u on labsstarted vitamin D3 supplementmirena IUD for BC - inserted 01/20/2023 SCOT Richard [address], [place], [address], [facility] 11/08/2023 10:07:58 06/17/20 24 text/ht ml Annual GYNReported by PatientHistoryFor history, patient reportsno gynecologic complaints.Genitourinary symptomsFor menstrual cycle, patient reportsnormal menses. For urinary symptoms, patient reportsno hematuriaandno incontinence. For vulva, patient reportsno genital lesion. For vagina, patient reportsnormal vaginal discharge.Breast symptomsFor breast, patient reportsno breast painandno breast lump.ContraceptionFor current contraception, patient reportssatisfied with current contraceptionandintrauterine device (iud).Endocrine symptomsFor sexual complaints, patient reportsno sexual complaintsandno pain during intercourse. For menopausal symptoms, patient reportsno menopausal symptomsandnormal vaginal lubrication.Psychological symptomsFor psychological symptoms, patient reportsno depressionandno anxiety.Preventative measuresFor preventive measures, patient reportsencourage self breast examinationandencourage regular exercise. Chai Carreno MD [address], [place], [address], [place] [facility] 06/17/2024 12:07:49 OBGyn Episode No OBEpisode recorded.
== END 2025-05-19 11:16 | disposition home or self-care (01) ==
PROVIDERS: Emergency Provider Nurse Practitioner; PCP Orthopaedic Surgery
DX: H60.93 Unspecified otitis externa, bilateral (principal); H66.92 Otitis media, unspecified, left ear; I10 Essential (primary) hypertension
CPT/HCPCS: 99213; G0463